=== PATIENT | male | born 1950 | race Caucasian/White ===

== ENCOUNTER 2020-07-30 03:26 | Emergency (ER) | payer MEDICARE, OTHER ==
[2020-07-30 03:45] VITALS: RESP 16; TEMP 97.6
[2020-07-30 04:33] LABS: Basophils % (A) 0 %; Eosinophils # (A) 0.2 k/uL (0-0.7); Eosinophils % (A) 1 %; HCT 49.1 % (39.0-53.0); Lymphocytes # (A) 0.9 k/uL (1.0-4.8); Lymphocytes % (A) 6 %; MCH 30.3 pg (25.0-35.0); MCHC 34.7 g/dL (31.0-37.0); MCV 87.4 fL (80.0-100.0); Mean Platelet Volume 8.6; Monocytes % (A) 6 %; Neutrophils # (A) 14.1 k/uL (1.3-7.7); Neutrophils % (A) 86 %; Platelet Count 146 k/uL (150-450); RBC 5.61 m/uL (4.30-5.90); WBC 16.3 k/uL (3.8-10.6)
--- NOTE | 2020-07-30 04:40 | XR ---
EXAMINATION TYPE: XR KUB DATE OF EXAM: 07/30/2020 COMPARISON: NONE HISTORY: Abdominal pain TECHNIQUE: 2 views FINDINGS: 2 views upright show no sign of intestinal obstruction or pneumoperitoneum. Fecal pattern i s normal. Lung bases are clear. There are no pathologic calcifications. IMPRESSION: Nonacute abdomen.
[2020-07-30 04:54] LABS: Albumin 3.8 g/dL (3.5-5.0); Potassium 4.3 mmol/L (3.5-5.1); Total Bilirubin 0.4 mg/dL (0.2-1.3)
--- NOTE | 2020-07-30 06:02 | ED ---
Abdominal Pain HPI - General Chief Complaint: Abdominal Pain Stated Complaint: Poss Allergic Reaction Time Seen by Provider: 07/30/20 03:51 Source: patient, EMS Mode of arrival: EMS Limitations: no limitations - History of Present Illness Initial Comments: This patient is a 70-year-old man who presents after having had some abdominal cramping, nausea, vomiting and then diarrhea. Patient had eaten prior to this coming on and thought that there may have been something he was ALLERGIC to. MD Complaint: abdominal pain Onset/Timin -: hour(s) Location: diffuse Radiation: none Migration to: no migration Quality: cramping Consistency: now resolved Improves With: nothing Worsens With: nothing Associated Symptoms: nausea, vomiting, diarrhea - Related Data Home Medications Medication Instructions Recorded Confirmed Aspirin 325 mg PO HS 07/01/14 01/07/15 Losartan [Cozaar] 50 mg PO HS 07/01/14 01/07/15 Metoprolol Tartrate [Lopressor] 25 mg PO HS 07/01/14 01/07/15 Simvastatin [Zocor] 40 mg PO HS 07/01/14 01/07/15 Previous Rx's Medication Instructions Recorded Famotidine [Pepcid] 20 mg PO DAILY #14 tablet 01/07/15 predniSONE 60 mg PO DIRECTED #30 tab 01/07/15 Allergies Allergy/AdvReac Type Severity Reaction Status Date / Time fosinopril sodium Allergy Swelling Verified 01/07/15 04:44 [From Monopril] blood pressure medication Allergy Itching Uncoded 01/07/15 04:44 Review of Systems ROS Statement: Those systems with pertinent positive or pertinent negative responses have been documented in the HPI. ROS Other: All systems not noted in ROS Statement are negative. Constitutional: Denies: fever, chills ENT: Denies: throat pain Respiratory: Denies: cough, dyspnea Cardiovascular: Denies: chest pain, palpitations, edema Gastrointestinal: Reports: abdominal pain, nausea, vomiting, diarrhea. Denies: hematemesis, melena, hematochezia Genitourinary: Denies: dysuria, hematuria Musculoskeletal: Denies: back pain Skin: Denies: rash Neurological: Denies: headache, weakness, numbness Past Medical History Past Medical History: Chest Pain / Angina Additional Past Medical History / Comment(s): MD History of Any Multi-Drug Resistant Organisms: None Reported Past Surgical History: Tonsillectomy Additional Past Surgical History / Comment(s): bovine valve, aortic valve replacement, left shoulder Past Psychological History: No Psychological Hx Reported Past Alcohol Use History: None Reported Past Drug Use History: None Reported General Exam Limitations: no limitations General appearance: alert, in no apparent distress Head exam: Present: atraumatic, normocephalic Eye exam: Present: normal appearance. Absent: scleral icterus, conjunctival injection ENT exam: Present: normal oropharynx Neck exam: Present: normal inspection Respiratory exam: Present: normal lung sounds bilaterally. Absent: respiratory distress, wheezes, rales, rhonchi, stridor Cardiovascular Exam: Present: regular rate, normal rhythm, normal heart sounds. Absent: systolic murmur, diastolic murmur, rubs, gallop GI/Abdominal exam: Present: soft. Absent: distended, tenderness, guarding, rebound, rigid, mass Extremities exam: Present: normal inspection, normal capillary refill. Absent: pedal edema, calf tenderness Back exam: Present: normal inspection. Absent: CVA tenderness (R), CVA tenderness (L) Neurological exam: Present: alert Skin exam: Present: warm, dry, intact, normal color. Absent: rash Course Vital Signs 07/30/20 07/30/20 03:44 06:07 Temperature 97.6 F Pulse Rate 64 65 Respiratory 16 16 Rate Blood Pressure 109/79 187/77 O2 Sat by Pulse 96 Oximetry Medical Decision Making - Medical Decision Making Patient is 70-year-old man presenting with GI symptoms that have subsequently resolved. He is feeling better and would like to go home. Discussed appropriate further care and follow-up as well as the return parameters - Lab Data Result diagrams: 07/30/20 04:19 07/30/20 04:19 Lab Results 07/30/20 07/30/20 07/30/20 Range/Units 04:19 04:19 04:19 WBC 16.3 H (3.8-10.6) k/uL RBC 5.61 (4.30-5.90) m/uL Hgb 17.0 (13.0-17.5) gm/dL Hct 49.1 (39.0-53.0) % MCV 87.4 (80.0-100.0) fL MCH 30.3 (25.0-35.0) pg MCHC 34.7 (31.0-37.0) g/dL RDW 13.0 (11.5-15.5) % Plt Count 146 L (150-450) k/uL MPV 8.6 Neutrophils % 86 % Lymphocytes % 6 % Monocytes % 6 % Eosinophils % 1 % Basophils % 0 % Neutrophils # 14.1 H (1.3-7.7) k/uL Lymphocytes # 0.9 L (1.0-4.8) k/uL Monocytes # 1.0 (0-1.0) k/uL Eosinophils # 0.2 (0-0.7) k/uL Basophils # 0.0 (0-0.2) k/uL Sodium 140 (137-145) mmol/L Potassium 4.3 (3.5-5.1) mmol/L Chloride 106 (98-107) mmol/L Carbon Dioxide 28 (22-30) mmol/L Anion Gap 6 mmol/L BUN 23 H (9-20) mg/dL Creatinine 1.09 (0.66-1.25) mg/dL Est GFR (CKD-EPI)AfAm 80 (>60 ml/min/1.73 sqM) Est GFR (CKD-EPI)NonAf 69 (>60 ml/min/1.73 sqM) Glucose 135 H (74-99) mg/dL Plasma Lactic Acid Reese 1.1 (0.7-2.0) mmol/L Calcium 9.0 (8.4-10.2) mg/dL Total Bilirubin 0.4 (0.2-1.3) mg/dL AST 23 (17-59) U/L ALT 17 (4-49) U/L Alkaline Phosphatase 58 (38-126) U/L Troponin I (0.000-0.034) ng/mL Total Protein 6.0 L (6.3-8.2) g/dL Albumin 3.8 (3.5-5.0) g/dL Amylase 43 (30-110) U/L Lipase 152 (23-300) U/L /20/ Range/Units 04:19 WBC (3.8-10.6) k/uL RBC (4.30-5.90) m/uL Hgb (13.0-17.5) gm/dL Hct (39.0-53.0) % MCV (80.0-100.0) fL MCH (25.0-35.0) pg MCHC (31.0-37.0) g/dL RDW (11.5-15.5) % Plt Count (150-450) k/uL MPV Neutrophils % % Lymphocytes % % Monocytes % % Eosinophils % % Basophils % % Neutrophils # (1.3-7.7) k/uL Lymphocytes # (1.0-4.8) k/uL Monocytes # (0-1.0) k/uL Eosinophils # (0-0.7) k/uL Basophils # (0-0.2) k/uL Sodium (137-145) mmol/L Potassium (3.5-5.1) mmol/L Chloride (98-107) mmol/L Carbon Dioxide (22-30) mmol/L Anion Gap mmol/L BUN (9-20) mg/dL Creatinine (0.66-1.25) mg/dL Est GFR (CKD-EPI)AfAm (>60 ml/min/1.73 sqM) Est GFR (CKD-EPI)NonAf (>60 ml/min/1.73 sqM) Glucose (74-99) mg/dL Plasma Lactic Acid Reese (0.7-2.0) mmol/L Calcium (8.4-10.2) mg/dL Total Bilirubin (0.2-1.3) mg/dL AST (17-59) U/L ALT (4-49) U/L Alkaline Phosphatase (38-126) U/L Troponin I 0.012 (0.000-0.034) ng/mL Total Protein (6.3-8.2) g/dL Albumin (3.5-5.0) g/dL Amylase (30-110) U/L Lipase (23-300) U/L Disposition Clinical Impression: Abdominal pain Disposition: HOME SELF-CARE Condition: Good Instructions (If sedation given, give patient instructions): Abdominal Pain (ED) Is patient prescribed a controlled substance at d/c from ED?: No Referrals: Reshma Ballard DO [Primary Care Provider] - 1-2 days
[2020-07-30 06:09] VITALS: BP 187/77; PULSE 65
== END 2020-07-30 06:18 | disposition home or self-care (01) ==
LOC: EC 03:26
DX: R10.84 Generalized abdominal pain (principal); R11.2 Nausea with vomiting, unspecified; R19.7 Diarrhea, unspecified; Z88.8 Allergy status to other drugs, medicaments and biological substances
CPT/HCPCS: 74018; 80053; 82150; 83605; 83690; 84484; 85025; 99284

== ENCOUNTER → 2021-08-09 | Outpatient (CLI) | payer MEDICARE, OTHER ==
--- NOTE | 2021-08-09 11:18 | US ---
EXAMINATION TYPE: US venous doppler duplex LE DATE OF EXAM: 08/09/2021 11:11 AM COMPARISON: NONE CLINICAL HISTORY: M79.662 Pain Left lower leg. Left leg pain and swelling SIDE PERFORMED: Bilateral TECHNIQUE: The lower extremity deep venous system is examined utilizing real time linear array sonog crystal with graded compression, doppler sonography and color-flow sonography. VESSELS IMAGED: Common Femoral Vein Deep Femoral Vein Greater Saphenous Vein * Femoral Vein Popliteal Vein Small Saphenous Vein * Proximal Calf Veins (* superficial vessels) Right Leg: Appears negative for DVT Left Leg: Appears negative for DVT IMPRESSION: No evidence for DVT at this time.
== END | disposition home or self-care (01) ==
LOC: RADUSWWP 10:44
PROVIDERS: ATTEND Family Medicine
DX: M79.662 Pain in left lower leg (principal)
CPT/HCPCS: 93970

== ENCOUNTER 2021-08-10 14:51 | Inpatient (IN) | payer MEDICARE ==
[2021-08-10] MEDS ORDERED: VANCOMYCIN 1,500 MG in SODIUM CHLORIDE 0.9% 250 ML IVPB STA (19:03)
[2021-08-10] MEDS ORDERED: SODIUM CHLORIDE 0.9% 1,000 ML IV STA (20:20)
--- NOTE | 2021-08-10 20:39 | ED ---
Extremity Problem HPI - General Chief complaint: Extremity Problem,Nontraumatic Stated complaint: Leg pain-Sent by PCP Time Seen by Provider: 08/10/21 18:49 Source: patient Mode of arrival: wheelchair Limitations: no limitations - History of Present Illness Initial comments: Patient is a 71-year-old male who presents to the emergency department for evalu ation of worsening cellulitis. Patient states that he was evaluated at [facility] on August 08 for redness and swelling of his lower left leg. Patient states on August 03 he was bit by a tick on his left side over his rib cage. His states that the tick was on his body for approximately less than 30 minutes before being pulled off. Patient states he did not experience a rash or any other symptoms until the redness on his left leg 5 days later. Patient was put on doxycycline and has been taking the medication as directed for the past 2 days. Patient states that redness and swelling is worsening. Patient endorses chills. He has not taken his temperature at home. Denies chest pain, shortness of breath, joint pain, rash over other area of the body, and other concerns. His primary care provider sent him to the hospital today for a venous Doppler of the left lower extremity which was reviewed and negative for DVT. - Related Data Home Medications Medication Instructions Recorded Confirmed Aspirin 325 mg PO HS 07/01/14 01/07/15 Losartan [Cozaar] 50 mg PO HS 07/01/14 01/07/15 Metoprolol Tartrate [Lopressor] 25 mg PO HS 07/01/14 01/07/15 Simvastatin [Zocor] 40 mg PO HS 07/01/14 01/07/15 Previous Rx's Medication Instructions Recorded Famotidine [Pepcid] 20 mg PO DAILY #14 tablet 01/07/15 predniSONE 60 mg PO DIRECTED #30 tab 01/07/15 Allergies Allergy/AdvReac Type Severity Reaction Status Date / Time fosinopril sodium Allergy Swelling Verified 08/10/21 16:13 [From Monopril] blood pressure medication Allergy Itching Uncoded 08/10/21 16:13 Review of Systems ROS Statement: Those systems with pertinent positive or pertinent negative responses have been documented in the HPI. ROS Other: All systems not noted in ROS Statement are negative. Past Medical History Past Medical History: Chest Pain / Angina Additional Past Medical History / Comment(s): cellulitis; [place] History of Any Multi-Drug Resistant Organisms: None Reported Past Surgical History: Tonsillectomy Additional Past Surgical History / Comment(s): bovine valve, aortic valve replacement, left shoulder Past Psychological History: No Psychological Hx Reported Smoking Status: Current every day smoker Past Alcohol Use History: None Reported Past Drug Use History: None Reported General Exam Limitations: no limitations General appearance: alert, in no apparent distress Head exam: Present: atraumatic, normocephalic, normal inspection Eye exam: Present: normal appearance, PERRL, EOMI. Absent: scleral icterus, conjunctival injection, periorbital swelling Respiratory exam: Present: normal lung sounds bilaterally, other (no rash or other skin abnormality over left ribs). Absent: respiratory distress, wheezes, rales, rhonchi, stridor Cardiovascular Exam: Present: regular rate, normal rhythm, normal heart sounds. Absent: systolic murmur, diastolic murmur, rubs, gallop, clicks GI/Abdominal exam: Present: soft, normal bowel sounds. Absent: distended, tenderness, guarding, rebound, rigid Extremities exam: Present: other (Significant erythema, swelling, warmth, and pain over the left lower leg and into the foot. There is some erythema traveling up the entire posterior thigh) Neurological exam: Present: alert, oriented X3, CN II-XII intact Psychiatric exam: Present: normal affect, normal mood Skin exam: Present: warm, dry, intact Course Vital Signs 08/10/21 16:11 Temperature 97.7 F Pulse Rate 69 Respiratory 16 Rate Blood Pressure 127/80 O2 Sat by Pulse 97 Oximetry Medical Decision Making - Medical Decision Making This is a 71-year-old male who presents with worsening left lower extremity cellulitis. Thorough history and examination were performed. Patient is afebrile however reports chills. There is significant erythema, swelling, and warmth over the left lower leg and into the foot. There is also erythema traveling up the entire length of the posterior thigh. Neurovascularly intact. Patient has extensive cellulitis and will need IV antibiotics. Blood cultures pending. Vancomycin initiated. Laboratory studies significant for mildly elevated white count at 11.8. Case discussed with Dr. Che. Patient will be admitted to her service for further evaluation and management. ID consulted cellulitis with recent tick bite. Results discussed with patient who verbalizes understanding and is agreeable to admission. Dr. Santoyo is my attending. - Lab Data Result diagrams: 08/10/21 20:25 08/10/21 20:25 Lab Results 08/10/21 08/10/21 08/10/21 Range/Units 20:25 20:25 20:25 WBC 11.8 H (3.8-10.6) k/uL RBC 4.74 (4.30-5.90) m/uL Hgb 14.2 (13.0-17.5) gm/dL Hct 41.9 (39.0-53.0) % MCV 88.4 (80.0-100.0) fL MCH 29.9 (25.0-35.0) pg MCHC 33.9 (31.0-37.0) g/dL RDW 13.1 (11.5-15.5) % Plt Count 131 L (150-450) k/uL MPV 8.8 Neutrophils % 88 % Lymphocytes % 5 % Monocytes % 4 % Eosinophils % 1 % Basophils % 1 % Neutrophils # 10.4 H (1.3-7.7) k/uL Lymphocytes # 0.6 L (1.0-4.8) k/uL Monocytes # 0.5 (0-1.0) k/uL Eosinophils # 0.1 (0-0.7) k/uL Basophils # 0.1 (0-0.2) k/uL Sodium 133 L (137-145) mmol/L Potassium 4.1 (3.5-5.1) mmol/L Chloride 99 (98-107) mmol/L Carbon Dioxide 27 (22-30) mmol/L Anion Gap 7 mmol/L BUN 19 (9-20) mg/dL Creatinine 1.03 (0.66-1.25) mg/dL Est GFR (CKD-EPI)AfAm 86 (>60 ml/min/1.73 sqM) Est GFR (CKD-EPI)NonAf 74 (>60 ml/min/1.73 sqM) Glucose 226 H (74-99) mg/dL Plasma Lactic Acid Reese 1.3 (0.7-2.0) mmol/L Calcium 8.4 (8.4-10.2) mg/dL Total Bilirubin 0.8 (0.2-1.3) mg/dL AST 29 (17-59) U/L ALT 16 (4-49) U/L Alkaline Phosphatase 59 (38-126) U/L Total Protein 6.3 (6.3-8.2) g/dL Albumin 3.5 (3.5-5.0) g/dL Disposition Clinical Impression: Cellulitis of left lower extremity, Chills, Tick bite of rib Disposition: ADMITTED IP TO THIS [facility] Condition: Fair Referrals: Reshma Ballard DO [Primary Care Provider] - 1-2 days Decision Time: 21:58
[2021-08-10 21:34] LABS: Basophils # (A) 0.1 k/uL (0-0.2); Basophils % (A) 1 %; Eosinophils # (A) 0.1 k/uL (0-0.7); Eosinophils % (A) 1 %; HCT 41.9 % (39.0-53.0); HGB 14.2 gm/dL (13.0-17.5); Lymphocytes # (A) 0.6 k/uL (1.0-4.8); Lymphocytes % (A) 5 %; MCH 29.9 pg (25.0-35.0); MCHC 33.9 g/dL (31.0-37.0); MCV 88.4 fL (80.0-100.0); Mean Platelet Volume 8.8; Monocytes # (A) 0.5 k/uL (0-1.0); Monocytes % (A) 4 %; Neutrophils # (A) 10.4 k/uL (1.3-7.7); Neutrophils % (A) 88 %; Platelet Count 131 k/uL (150-450); RBC 4.74 m/uL (4.30-5.90); RDW 13.1 % (11.5-15.5); WBC 11.8 k/uL (3.8-10.6)
[2021-08-10 21:36] LABS: Albumin 3.5 g/dL (3.5-5.0); Calcium 8.4 mg/dL (8.4-10.2); Total Bilirubin 0.8 mg/dL (0.2-1.3); Total Protein 6.3 g/dL (6.3-8.2)
[2021-08-10 21:45] LABS: Potassium 4.1 mmol/L (3.5-5.1)
[2021-08-10] MEDS ORDERED: NALOXONE 0.4 MG/ML 1 ML VIAL IV PRN (22:31)
[2021-08-10] MEDS ORDERED: MORPHINE SULFATE 4 MG/ML SYRINGE IVP STA (23:31)
[2021-08-11] MEDS: MORPHINE SULFATE 4 MG/ML SYRINGE IVP PRN ×3 (06:47→20:17)
[2021-08-11 06:52] LABS: Glucose,Whole Blood 124 mg/dL (70-110)
[2021-08-11] MEDS: NICOTINE 14MG/24HR PATCH TRANSDERM SCH (07:15)
--- NOTE | 2021-08-11 10:38 | P.HPIM ---
History of Present Illness This is a pleasant 71 years old male with past medical history of hypertension , hyperlipidemia. Is a patient of Dr. Bocanegra pt states he was playing like a baseball game last friday and next day the back of his left leg calf started hurting him, and started getting more red swollen and tender, he presents with left leg cellulitis mainly involving the distal left leg looks extends to lesser extent in the left foot and more on the medial thigh up to the groin. The leg is warm, erythematous and tender and swollen Patient denies any other complaints. Patient states he is diabetic but he is on diet control only. Denies chest pain or dyspnea. No abdominal pain vomiting or diarrhea. No urinary complaints. No headache or weakness. he smokes less than half the day and he was counseled that he does not want to quit and he declined nicotine patch, no alcohol or illicit drugs. Vitas looks stable. Mild leukocytosis at 11.8. Mild thrombocytopenia on 131. BNP and d, And painfulided enzymes are unremarkable. Glucose is 226. In the emergency room patient was started on IV vancomycin. ID consult Review of Systems Review of systems CONSTITUTIONAL: No fever, no malaise, no fatigue. HEENT: No recent visual problems or hearing problems. Denied any sore throat. CARDIOVASCULAR: No orthopnea, PND, no palpitations, no syncope. PULMONARY: No shortness of breath, no cough, no hemoptysis. GASTROINTESTINAL: No diarrhea, no nausea, no vomiting, no abdominal pain. Normoactive bowel sounds. NEUROLOGICAL: No headaches, no weakness, no numbness. HEMATOLOGICAL: Denies any bleeding or petechiae. GENITOURINARY: Denies any burning micturition, frequency, or urgency. MUSCULOSKELETAL/RHEUMATOLOGICAL: Denies any joint pain, swelling, or any muscle pain. Except above ENDOCRINE: Denies any polyuria or polydipsia. Past Medical History Past Medical History: Chest Pain / Angina Additional Past Medical History / Comment(s): cellulitis; [place] History of Any Multi-Drug Resistant Organisms: None Reported Past Surgical History: Tonsillectomy Additional Past Surgical History / Comment(s): bovine valve, aortic valve r eplacement, left shoulder Past Anesthesia/Blood Transfusion Reactions: No Reported Reaction Past Psychological History: No Psychological Hx Reported Smoking Status: Current every day smoker Past Alcohol Use History: None Reported Past Drug Use History: None Reported Medications and Allergies Home Medications Medication Instructions Recorded Confirmed Type Metoprolol Tartrate [Lopressor] 25 mg PO BID 07/01/14 08/10/21 History Simvastatin [Zocor] 40 mg PO HS 07/01/14 08/10/21 History Aspirin EC [Ecotrin Low Dose] 81 mg PO DAILY 08/10/21 08/10/21 History Doxycycline Hyclate 100 mg PO BID 08/10/21 08/10/21 History Allergies Allergy/AdvReac Type Severity Reaction Status Date / Time fosinopril sodium Allergy Swelling & Verified 08/10/21 22:47 [From Monopril] itching lisinopril Allergy Itching Verified 08/10/21 22:47 Physical Exam Vitals: Vital Signs Temp Pulse Pulse Resp BP BP Pulse Ox 08/11/21 01:30 99.5 F 79 16 138/77 95 08/10/21 23:00 77 16 130/77 96 08/10/21 22:42 99.5 F 79 16 138/77 95 08/10/21 16:11 97.7 F 69 16 127/80 97 Intake and Output 08/10/21 08/11/21 08/11/21 22:59 06:59 14:59 Other: Weight 78.018 kg GENERAL: The patient is alert and oriented x3, not in any acute distress. Well developed, well nourished. HEENT: Pupils are round and equally reacting to light. EOMI. No scleral icterus. No conjunctival pallor. Normocephalic, atraumatic. No pharyngeal erythema. No thyromegaly. CARDIOVASCULAR: S1 and S2 present. No murmurs, rubs, or gallops. PULMONARY: Chest is clear to auscultation, no wheezing or crackles. ABDOMEN: Soft, nontender, nondistended, normoactive bowel sounds. No palpable organomegaly. MUSCULOSKELETAL: No joint swelling or deformity. -EXTREMITIES: No cyanosis, clubbing, or pedal edema. The whole left leg is inflamed, red swollen and tender, mainly in the distal part. Involving the medial part of the left thigh and to less extent the left foot, no ankle o knee swelling or limitation of movemen significantt NEUROLOGICAL: Gross neurological examination did not reveal any focal deficits. SKIN: No rashes. no petechiae. Results CBC & Chem 7: 08/10/21 20:25 08/10/21 20:25 Labs: Abnormal Lab Results - Last 24 Hours (Table) 08/10/21 08/10/21 08/11/21 Range/Units 20:25 20:25 06:51 WBC 11.8 H (3.8-10.6) k/uL Plt Count 131 L (150-450) k/uL Neutrophils # 10.4 H (1.3-7.7) k/uL Lymphocytes # 0.6 L (1.0-4.8) k/uL Sodium 133 L (137-145) mmol/L Glucose 226 H (74-99) mg/dL POC Glucose (mg/dL) 124 H (70-110) mg/dL Thrombosis Risk Factor Assmnt - Choose All That Apply Any of the Below Risk Factors Present?: No Other Risk Factors: No Thrombosis Risk Factor Assessment Level: Very Low Risk Assessment and Plan Assessment: Left lower extremity cellulitis Nicotine dependence Hypertension Hyperlipidemia Plan: This is a pleasant 71 years old female who presents with acute cellulitis Continue with antibiotics Infectious disease team consult Road consult also orthopedic team given his significant swelling of the left lower extremity Labs and medication were reviewed.. Continue same treatment. Continue with symptomatic treatment. Resume home medication. Monitor lytes and vitals. DVT and GI prophylaxis. Further recommendations as per clinical course of the patient DVT prophylaxis: Subcutaneous heparin GI Prophylaxis: Pepcid PT/OT: Pending Prognosis is guarded
[2021-08-11] MEDS: SODIUM CHLORIDE 0.9% 1,000 ML IV SCH (11:28)
[2021-08-11 11:33] LABS: Basophils # (A) 0.02 X 10*3/uL (0.00-0.10); Basophils % (A) 0.2 %; Eosinophils # (A) 0.11 X 10*3/uL (0.04-0.35); Eosinophils % (A) 1.1 %; HCT 38.5 % (39.6-50.0); HGB 12.5 g/dL (13.0-17.0); Immature Grans, Automated 0.4 %; Lymphocytes # (A) 0.74 X 10*3/uL (0.90-5.00); Lymphocytes % (A) 7.3 %; MCH 28.2 pg (27.0-32.0); MCHC 32.5 g/dL (32.0-37.0); MCV 86.9 fL (80.0-97.0); Mean Platelet Volume 11.7 fL (9.5-12.2); Monocytes # (A) 0.87 X 10*3/uL (0.20-1.00); Monocytes % (A) 8.6 %; NRBC Per 100 WBC 0 /100 WBCS (0.0-0.0); Neutrophils # (A) 8.32 X 10*3/uL (1.80-7.70); Neutrophils % (A) 82.4 %; Platelet Count 135 X 10*3/uL (140-440); RBC 4.43 X 10*6/uL (4.40-5.60); RDW 13.1 % (11.5-14.5)
[2021-08-11 11:33] LABS: Glucose,Whole Blood 212 mg/dL (70-110)
[2021-08-11 11:41] LABS: African American GFR (CKD) 88.6 (60.0-200.0); Anion Gap 9.5 mmol/L (10.00-18.00); BUN/Creat Ratio 13.8 Ratio (12.00-20.00); Blood Urea Nitrogen 13.8 mg/dL (9.0-27.0); Calcium 7.8 mg/dL (8.7-10.3); Carbon Dioxide 20.5 mmol/L (20.0-27.5); Magnesium 1.9 mg/dL (1.5-2.4); Non-African American GFR(CKD) 76.5 (60.0-200.0)
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
--- NOTE | 2021-08-11 11:52 | US ---
EXAMINATION TYPE: US venous doppler duplex LE LT DATE OF EXAM: 08/11/2021 11:02 AM COMPARISON: US CLINICAL HISTORY: swelling. Left leg redness and swelling SIDE PERFORMED: Left TECHNIQUE: The lower extremity deep venous system is examined utilizing real time linear array sonog crystal with graded compression, doppler sonography and color-flow sonography. VESSELS IMAGED: Common Femoral Vein Deep Femoral Vein Greater Saphenous Vein * Femoral Vein Popliteal Vein Small Saphenous Vein * Proximal Calf Veins (* superficial vessels) Left Leg: Negative for DVT, Grayscale, color doppler, spectral doppler imaging performed of the deep veins of the lower extremities. There is normal flow, compressibility, vascular waveforms. IMPRESSION: No evidence for deep vein thrombosis of the left lower extremity.
[2021-08-11] MEDS: INSULIN ASPART (NovoLOG) 100 UNIT/ML VIAL SQ SCH ×3 (11:55→20:12)
[2021-08-11] MEDS ORDERED: VANCOMYCIN 1,500 MG in SODIUM CHLORIDE 0.9% 250 ML IVPB SCH (14:00)
[2021-08-11] MEDS: HYDROcodone/APAP 7.5-325MG 1 EACH TAB PO PRN ×2 (14:16→21:55)
[2021-08-11 16:53] LABS: Glucose,Whole Blood 113 mg/dL (70-110)
[2021-08-11] MEDS: ASPIRIN 81 MG PO SCH (19:18)
[2021-08-11] MEDS: FAMOTIDINE 20 MG/2 ML VIAL IV SCH (20:04)
[2021-08-11] MEDS: HEPARIN SODIUM,PORCINE/PF 5,000 UNIT/0.5 ML SYRINGE SQ SCH (20:05)
[2021-08-11 20:12] LABS: Glucose,Whole Blood 133 mg/dL (70-110)
[2021-08-11] MEDS: ATORVASTATIN 20 MG TAB PO SCH (20:12)
[2021-08-11] MEDS: METOPROLOL TARTRATE 25 MG TAB PO SCH (20:17)
[2021-08-12] MEDS: MORPHINE SULFATE 4 MG/ML SYRINGE IVP PRN ×4 (00:24→19:14)
[2021-08-12] MEDS: SODIUM CHLORIDE 0.9% 1,000 ML IV SCH ×2 (00:25→18:37)
--- NOTE | 2021-08-12 00:58 | P.CONS ---
History of Present Illness - Reason for Consult Consult date: 08/11/21 Left lower extremity cellulitis Requesting physician: Kriss Rivera - Chief Complaint Left leg swelling and redness x few days - History of Present Illness Patient is a 71-year-old male apparently has been bitten by a tick last week on his left side of his chest, the tick was removed within a few hours of attachment and the patient had a rash or redness apparently afterwards the patient did scrape his left coleman on a trailer hitch and subsequently for the las t few days noticed to have increasing pain swelling redness of the left leg which has progressively gotten worse for the patient presented to the hospital patient on arrival to the ER was running a low-grade fever of 99.5 F patient did have white count of 11.8 with a left shift kidney function has been normal blood cultures obtained currently pending patient complaining of some chills but no high-grade fever has been complaining of increasing pain swelling redness of the left leg pain is mostly sharp to throbbing intensity is almost 10 out of 10 with no radiation with associated swelling redness no open wound or any drainage patient was started on vancomycin infectious disease was consulted for further management of antibiotic therapy Review of Systems Positive point has been mentioned in the HPI rest of the systems are negative Past Medical History Past Medical History: Chest Pain / Angina Additional Past Medical History / Comment(s): cellulitis; [place] History of Any Multi-Drug Resistant Organisms: None Reported Past Surgical History: Tonsillectomy Additional Past Surgical History / Comment(s): bovine valve, aortic valve replacement, left shoulder Past Anesthesia/Blood Transfusion Reactions: No Reported Reaction Past Psychological History: No Psychological Hx Reported Smoking Status: Current every day smoker Past Alcohol Use History: None Reported Past Drug Use History: None Reported Medications and Allergies Home Medications Medication Instructions Recorded Confirmed Type Metoprolol Tartrate [Lopressor] 25 mg PO BID 07/01/14 08/10/21 History Simvastatin [Zocor] 40 mg PO HS 07/01/14 08/10/21 History Aspirin EC [Ecotrin Low Dose] 81 mg PO DAILY 08/10/21 08/10/21 History Cephalexin [Keflex] 500 mg PO Q8HR 7 Days #21 cap 08/18/21 Rx Clindamycin [Cleocin] 150 mg PO Q6H 7 Days #28 cap 08/18/21 Rx Ketorolac [Toradol] 10 mg PO Q6HR 3 Days #12 tab 08/18/21 Rx Allergies Allergy/AdvReac Type Severity Reaction Status Date / Time fosinopril sodium Allergy Swelling & Verified 08/10/21 22:47 [From Monopril] itching lisinopril Allergy Itching Verified 08/10/21 22:47 Physical Exam Vitals: Vital Signs Temp Pulse Pulse Resp BP BP Pulse Ox 08/11/21 14:00 97.3 F L 67 18 108/67 94 L 08/11/21 08:00 98.2 F 75 16 115/71 93 L 08/11/21 01:30 99.5 F 79 16 138/77 95 08/10/21 23:00 77 16 130/77 96 08/10/21 22:42 99.5 F 79 16 138/77 95 08/10/21 16:11 97.7 F 69 16 127/80 97 GENERAL DESCRIPTION: Elderly male lying in bed, no distress. No tachypnea or accessory muscle of respiration use. HEENT: Shows Pallor , no scleral icterus. Oral mucous membrane is dry. No pharyngeal erythema or thrush NECK: Trachea central, no thyromegaly. LUNGS: Unlabored breathing. Clear to auscultation anteriorly. No wheeze or crackle. HEART: S1, S2, regular rate and rhythm. No loud murmur ABDOMEN: Soft, no tenderness , guarding or rigidity, no organomegaly EXTREMITIES: Left leg with diffuse swelling and redness warm and tender to touch SKIN: No rash, no masses palpable. NEUROLOGICAL: The patient is awake, alert, oriented x3, mood and affect normal. Results CBC & Chem 7: 08/17/21 06:23 08/17/21 06:23 Labs: Abnormal Lab Results - Last 24 Hours (Table) 08/10/21 08/10/21 08/11/21 Range/Units 20:25 20:25 06:51 WBC 11.8 H (3.8-10.6) k/uL Hgb (13.0-17.0) g/dL Hct (39.6-50.0) % Plt Count 131 L (150-450) k/uL Neutrophils # 10.4 H (1.3-7.7) k/uL Lymphocytes # 0.6 L (1.0-4.8) k/uL Sodium 133 L (137-145) mmol/L Anion Gap (10.00-18.00) mmol/L Glucose 226 H (74-99) mg/dL POC Glucose (mg/dL) 124 H (70-110) mg/dL Hemoglobin A1c (0.0-6.0) % Calcium (8.7-10.3) mg/dL 08/11/21 08/11/21 08/11/21 Range/Units 07:46 07:46 07:46 WBC 10.10 H (3.8-10.6) k/uL Hgb 12.5 L (13.0-17.0) g/dL Hct 38.5 L (39.6-50.0) % Plt Count 135 L (150-450) k/uL Neutrophils # 8.32 H (1.3-7.7) k/uL Lymphocytes # 0.74 L (1.0-4.8) k/uL Sodium 134 L (137-145) mmol/L Anion Gap 9.50 L (10.00-18.00) mmol/L Glucose 134 H (74-99) mg/dL POC Glucose (mg/dL) (70-110) mg/dL Hemoglobin A1c 6.5 H (0.0-6.0) % Calcium 7.8 L (8.7-10.3) mg/dL 08/11/21 Range/Units 11:32 WBC (3.8-10.6) k/uL Hgb (13.0-17.0) g/dL Hct (39.6-50.0) % Plt Count (150-450) k/uL Neutrophils # (1.3-7.7) k/uL Lymphocytes # (1.0-4.8) k/uL Sodium (137-145) mmol/L Anion Gap (10.00-18.00) mmol/L Glucose (74-99) mg/dL POC Glucose (mg/dL) 212 H (70-110) mg/dL Hemoglobin A1c (0.0-6.0) % Calcium (8.7-10.3) mg/dL Assessment and Plan (1) Cellulitis of left lower extremity Status: Acute Code(s): L03.116 - CELLULITIS OF LEFT LOWER LIMB SNOMED Code(s): 213218100 Plan: 1patient presented to hospital acute left lower extremity cellulitis in this patient who did have diffuse swelling and redness more likely streptococcal disease clinically not behaving as MRSA or gram-negative infection. 2discontinue vancomycin. 3Marked area of the redness left leg. 4we will start the patient cefazolin 2 g every 8 hours. We will follow on clinical condition and cultures to further adjust medication if needed Thank you for this consultation will follow this patient along with you Time with Patient: Greater than 30
[2021-08-12] MEDS: HYDROcodone/APAP 7.5-325MG 1 EACH TAB PO PRN ×3 (04:05→23:06)
[2021-08-12 06:59] LABS: Glucose,Whole Blood 121 mg/dL (70-110)
[2021-08-12] MEDS: INSULIN ASPART (NovoLOG) 100 UNIT/ML VIAL SQ SCH ×4 (07:38→20:00)
[2021-08-12] MEDS: FAMOTIDINE 20 MG/2 ML VIAL IV SCH ×2 (08:01→19:57)
[2021-08-12] MEDS: HEPARIN SODIUM,PORCINE/PF 5,000 UNIT/0.5 ML SYRINGE SQ SCH ×2 (08:01→19:59)
[2021-08-12] MEDS: NICOTINE 14MG/24HR PATCH TRANSDERM SCH (08:01)
[2021-08-12] MEDS: METOPROLOL TARTRATE 25 MG TAB PO SCH ×2 (08:22→20:02)
--- NOTE | 2021-08-12 11:27 | P.PN ---
Subjective Progress Note Date: 08/12/21 Principal diagnosis: Cellulitis left lower extremity. Abrasion left lower leg. This is a 71-year-old male who we are following regarding cellulitis to his left lower extremity. He has had slight improvement in his swelling and redness. He has no new complaints or concerns today. Vital signs are stable. Objective - Vital Signs Vital signs: Vital Signs Temp 98.7 F 08/12/21 08:00 Pulse 52 L 08/12/21 08:00 Resp 18 08/12/21 08:00 BP 133/61 08/12/21 08:00 Pulse Ox 94 L 08/12/21 08:00 FiO2 Intake & Output 08/11/21 08/12/21 08/12/21 18:59 06:59 18:59 Output Total 400 Balance -400 Output: Urine 400 Other: Voiding Method Urinal # Voids 1 1 # Bowel Movements 1 - Exam This is a pleasant 71-year-old male in no acute distress. He is alert and oriented 3. Exam of the left leg reveals some remaining erythema at the distal aspect of the lower leg. He has full foot and ankle motion without difficulty or pain. Neurovascular status to the lower extremity is intact. - Labs CBC & Chem 7: 08/11/21 07:46 08/11/21 07:46 Labs: Abnormal Lab Results - Last 24 Hours (Table) 08/11/21 08/11/21 08/11/21 Range/Units 07:46 07:46 07:46 WBC 10.10 H (4.50-10.00) X 10*3/uL Hgb 12.5 L (13.0-17.0) g/dL Hct 38.5 L (39.6-50.0) % Plt Count 135 L (140-440) X 10*3/uL Neutrophils # 8.32 H (1.80-7.70) X 10*3/uL Lymphocytes # 0.74 L (0.90-5.00) X 10*3/uL Sodium 134 L (135-145) mmol/L Anion Gap 9.50 L (10.00-18.00) mmol/L Glucose 134 H (70-110) mg/dL POC Glucose (mg/dL) (70-110) mg/dL Hemoglobin A1c 6.5 H (0.0-6.0) % Calcium 7.8 L (8.7-10.3) mg/dL 08/11/21 08/11/21 08/11/21 Range/Units 11:32 16:51 20:11 WBC (4.50-10.00) X 10*3/uL Hgb (13.0-17.0) g/dL Hct (39.6-50.0) % Plt Count (140-440) X 10*3/uL Neutrophils # (1.80-7.70) X 10*3/uL Lymphocytes # (0.90-5.00) X 10*3/uL Sodium (135-145) mmol/L Anion Gap (10.00-18.00) mmol/L Glucose (70-110) mg/dL POC Glucose (mg/dL) 212 H 113 H 133 H (70-110) mg/dL Hemoglobin A1c (0.0-6.0) % Calcium (8.7-10.3) mg/dL 08/12/21 Range/Units 06:58 WBC (4.50-10.00) X 10*3/uL Hgb (13.0-17.0) g/dL Hct (39.6-50.0) % Plt Count (140-440) X 10*3/uL Neutrophils # (1.80-7.70) X 10*3/uL Lymphocytes # (0.90-5.00) X 10*3/uL Sodium (135-145) mmol/L Anion Gap (10.00-18.00) mmol/L Glucose (70-110) mg/dL POC Glucose (mg/dL) 121 H (70-110) mg/dL Hemoglobin A1c (0.0-6.0) % Calcium (8.7-10.3) mg/dL Microbiology - Last 24 Hours (Table) 08/10/21 22:00 Blood Culture - Preliminary Blood No Growth after 24 hours 08/10/21 20:25 Blood Culture - Preliminary Blood No Growth after 24 hours Assessment and Plan (1) Abrasion, lower leg, anterior Current Visit: Yes Status: Acute Code(s): S80.819A - ABRASION, UNSPECIFIED LOWER LEG, INITIAL ENCOUNTER SNOMED Code(s): 599774192 (2) Cellulitis of left lower extremity Current Visit: Yes Status: Acute Code(s): L03.116 - CELLULITIS OF LEFT LOWER LIMB SNOMED Code(s): 164450224 (3) Chills Current Visit: Yes Status: Acute Code(s): R68.83 - CHILLS (WITHOUT FEVER) SNOMED Code(s): 87072259 Plan: The clinical findings are discussed the patient. I feel that the superficial abrasion to the anterior aspect of his leg is more likely the culprit causing the cellulitis. I do not believe that the tick bite is related. I will add a K- pad for moist heat to the lower leg. I do not feel that there is any indication for surgical intervention at this time. We will continue to follow.
[2021-08-12 11:35] LABS: Glucose,Whole Blood 171 mg/dL (70-110)
[2021-08-12 11:58] LABS: HCT 36.2 % (39.6-50.0); HGB 11.9 g/dL (13.0-17.0); MCH 28.7 pg (27.0-32.0); MCHC 32.9 g/dL (32.0-37.0); MCV 87.4 fL (80.0-97.0); Mean Platelet Volume 11.9 fL (9.5-12.2); NRBC Per 100 WBC 0 /100 WBCS (0.0-0.0); Platelet Count 141 X 10*3/uL (140-440); RBC 4.14 X 10*6/uL (4.40-5.60); RDW 13.2 % (11.5-14.5); WBC 9.95 X 10*3/uL (4.50-10.00)
[2021-08-12 12:14] LABS: African American GFR (CKD) 102.7 (60.0-200.0); Anion Gap 10.4 mmol/L (10.00-18.00); BUN/Creat Ratio 16.71 Ratio (12.00-20.00); Blood Urea Nitrogen 14.3 mg/dL (9.0-27.0); Calcium 7.8 mg/dL (8.7-10.3); Carbon Dioxide 21.1 mmol/L (20.0-27.5); Magnesium 2.2 mg/dL (1.5-2.4); Non-African American GFR(CKD) 88.7 (60.0-200.0); Potassium 4.2 mmol/L (3.5-5.5)
[2021-08-12 12:37] LABS: Basophils # (A) 0.07 X 10*3/uL (0.00-0.10); Basophils % (A) 0.7 %; Eosinophils # (A) 0.17 X 10*3/uL (0.04-0.35); Eosinophils % (A) 1.7 %; Immature Grans, Automated 0.7 %; Lymphocytes # (A) 0.93 X 10*3/uL (0.90-5.00); Lymphocytes % (A) 9.3 %; Monocytes # (A) 1.01 X 10*3/uL (0.20-1.00); Monocytes % (A) 10.2 %; Neutrophils % (A) 77.4 %; RBC Morphology NORMAL
[2021-08-12 16:40] LABS: Glucose,Whole Blood 128 mg/dL (70-110)
[2021-08-12 19:52] LABS: Glucose,Whole Blood 173 mg/dL (70-110)
[2021-08-12] MEDS: ATORVASTATIN 20 MG TAB PO SCH (19:59)
[2021-08-12] MEDS: ASPIRIN 81 MG PO SCH (20:02)
--- NOTE | 2021-08-12 22:33 | P.PN ---
Subjective This is a pleasant 71 years old male with past medical history of hypertension , hyperlipidemia. Is a patient of Dr. Bocanegra pt states he was playing like a baseball game last friday and next day the back of his left leg calf started hurting him, and started getting more red swollen and tender, he presents with left leg cellulitis mainly involving the distal left leg looks extends to lesser extent in the left foot and more on the medial thigh up to the groin. The leg is warm, erythematous and tender and swollen Patient denies any other complaints. Patient states he is diabetic but he is on diet control only. Denies chest pain or dyspnea. No abdominal pain vomiting or diarrhea. No urinary complaints. No headache or weakness. he smokes less than half the day and he was counseled that he does not want to quit and he declined nicotine patch, no alcohol or illicit drugs. Vitas looks stable. Mild leukocytosis at 11.8. Mild thrombocytopenia on 131. BNP and d, And painfulided enzymes are unremarkable. Glucose is 226. In the emergency room patient was started on IV vancomycin. ID consult 08/12/2021 Left leg cellulitis today significantly improved, his redness and erythema in the left thigh is almost completely resolved and his cellulitis now is confined to the about two thirds of the left leg mainly distal part. Pain is better. With this improvement vancomycin was discontinued and continued with cefazolin He tolerated that well and hemodynamically stable No known 50 mL per hour Objective - Vital Signs Vital signs: Vital Signs Temp 98.7 F 08/12/21 08:00 Pulse 52 L 08/12/21 08:00 Resp 18 08/12/21 08:00 BP 133/61 08/12/21 08:00 Pulse Ox 94 L 08/12/21 08:00 FiO2 Intake & Output 08/11/21 08/12/21 08/12/21 18:59 06:59 18:59 Output Total 400 Balance -400 Output: Urine 400 Other: Voiding Method Urinal # Voids 1 1 # Bowel Movements 1 - Exam GENERAL: The patient is alert and oriented x3, not in any acute distress. Well d eveloped, well nourished. HEENT: Pupils are round and equally reacting to light. EOMI. No scleral icterus. No conjunctival pallor. Normocephalic, atraumatic. No pharyngeal erythema. No thyromegaly. CARDIOVASCULAR: S1 and S2 present. No murmurs, rubs, or gallops. PULMONARY: Chest is clear to auscultation, no wheezing or crackles. ABDOMEN: Soft, nontender, nondistended, normoactive bowel sounds. No palpable organomegaly. MUSCULOSKELETAL: No joint swelling or deformity. -EXTREMITIES: No cyanosis, clubbing, or pedal edema. Left leg cellulitis, improved NEUROLOGICAL: Gross neurological examination did not reveal any focal deficits. SKIN: No rashes. no petechiae. - Labs CBC & Chem 7: 08/12/21 06:38 08/12/21 06:38 Labs: Abnormal Lab Results - Last 24 Hours (Table) 08/11/21 08/11/21 08/11/21 Range/Units 07:46 07:46 07:46 WBC 10.10 H (4.50-10.00) X 10*3/uL Hgb 12.5 L (13.0-17.0) g/dL Hct 38.5 L (39.6-50.0) % Plt Count 135 L (140-440) X 10*3/uL Neutrophils # 8.32 H (1.80-7.70) X 10*3/uL Lymphocytes # 0.74 L (0.90-5.00) X 10*3/uL Sodium 134 L (135-145) mmol/L Anion Gap 9.50 L (10.00-18.00) mmol/L Glucose 134 H (70-110) mg/dL POC Glucose (mg/dL) (70-110) mg/dL Hemoglobin A1c 6.5 H (0.0-6.0) % Calcium 7.8 L (8.7-10.3) mg/dL 08/11/21 08/11/21 08/11/21 Range/Units 11:32 16:51 20:11 WBC (4.50-10.00) X 10*3/uL Hgb (13.0-17.0) g/dL Hct (39.6-50.0) % Plt Count (140-440) X 10*3/uL Neutrophils # (1.80-7.70) X 10*3/uL Lymphocytes # (0.90-5.00) X 10*3/uL Sodium (135-145) mmol/L Anion Gap (10.00-18.00) mmol/L Glucose (70-110) mg/dL POC Glucose (mg/dL) 212 H 113 H 133 H (70-110) mg/dL Hemoglobin A1c (0.0-6.0) % Calcium (8.7-10.3) mg/dL 08/12/21 Range/Units 06:58 WBC (4.50-10.00) X 10*3/uL Hgb (13.0-17.0) g/dL Hct (39.6-50.0) % Plt Count (140-440) X 10*3/uL Neutrophils # (1.80-7.70) X 10*3/uL Lymphocytes # (0.90-5.00) X 10*3/uL Sodium (135-145) mmol/L Anion Gap (10.00-18.00) mmol/L Glucose (70-110) mg/dL POC Glucose (mg/dL) 121 H (70-110) mg/dL Hemoglobin A1c (0.0-6.0) % Calcium (8.7-10.3) mg/dL Microbiology - Last 24 Hours (Table) 08/10/21 22:00 Blood Culture - Preliminary Blood No Growth after 24 hours 08/10/21 20:25 Blood Culture - Preliminary Blood No Growth after 24 hours Assessment and Plan Assessment: Left lower extremity cellulitis Nicotine dependence Hypertension Hyperlipidemia Plan: This is a pleasant 71 years old female who presents with acute cellulitis Continue with antibiotics, currently on cefazolin Infectious disease team consult Orthopedic consult Labs and medication were reviewed.. Continue same treatment. Continue with symptomatic treatment. Resume home medication. Monitor lytes and vitals. DVT and GI prophylaxis. Further recommendations as per clinical course of the patient DVT prophylaxis: Subcutaneous heparin GI Prophylaxis: Pepcid PT/OT: Pending Prognosis is guarded
--- NOTE | 2021-08-13 01:43 | P.PN ---
Subjective Progress Note Date: 08/12/21 Principal diagnosis: Left lower extremity cellulitis Patient is a 71 year old male who presented to hospital with acute left lower extremity pain swelling and redness and has been diagnosed with left lower extremity cellulitis. On today's evaluation that is 08/12/2021, the patient denies having any fever or any chills the patient is breathing comfortably no chest pain shortness breath or cough no abdominal pain overall swelling redness to left leg is slightly decreased in intensity Objective - Vital Signs Vital signs: Vital Signs Temp 98.5 F 08/12/21 19:06 Pulse 60 08/12/21 19:06 Resp 16 08/12/21 19:06 BP 120/69 08/12/21 19:06 Pulse Ox 95 08/12/21 19:06 FiO2 Intake & Output 08/12/21 08/12/21 08/13/21 06:59 18:59 06:59 Output Total 400 200 Balance -400 -200 Output: Urine 400 200 Other: Voiding Method Urinal Urinal # Voids 1 3 1 # Bowel Movements 1 - Exam GENERAL DESCRIPTION: An elderly male lying in bed in no distress RESPIRATORY SYSTEM: Unlabored breathing , decreased breath sounds at bases HEART: S1 S2 regular rate and rhythm , ABDOMEN: Soft , no tenderness EXTREMITIES: Left leg swelling and redness has decreased in intensity - Labs CBC & Chem 7: 08/12/21 06:38 08/12/21 06:38 Labs: Abnormal Lab Results - Last 24 Hours (Table) 08/12/21 08/12/21 08/12/21 Range/Units 06:38 06:38 06:58 RBC 4.14 L (4.40-5.60) X 10*6/uL Hgb 11.9 L (13.0-17.0) g/dL Hct 36.2 L (39.6-50.0) % Immature Gran # 0.07 H (0.00-0.04) X 10*3/uL Monocytes # 1.01 H (0.20-1.00) X 10*3/uL Glucose 122 H (70-110) mg/dL POC Glucose (mg/dL) 121 H (70-110) mg/dL Calcium 7.8 L (8.7-10.3) mg/dL 08/12/21 08/12/21 08/12/21 Range/Units 11:34 16:39 19:51 RBC (4.40-5.60) X 10*6/uL Hgb (13.0-17.0) g/dL Hct (39.6-50.0) % Immature Gran # (0.00-0.04) X 10*3/uL Monocytes # (0.20-1.00) X 10*3/uL Glucose (70-110) mg/dL POC Glucose (mg/dL) 171 H 128 H 173 H (70-110) mg/dL Calcium (8.7-10.3) mg/dL Microbiology - Last 24 Hours (Table) 08/10/21 22:00 Blood Culture - Preliminary Blood No Growth after 24 hours 08/10/21 20:25 Blood Culture - Preliminary Blood No Growth after 24 hours Assessment and Plan (1) Cellulitis of left lower extremity Current Visit: Yes Status: Acute Code(s): L03.116 - CELLULITIS OF LEFT LOWER LIMB SNOMED Code(s): 891158245 Plan: 1patient presented to hospital acute left lower extremity cellulitis in this patient who did have diffuse swelling and redness more likely streptococcal disease clinically not behaving as MRSA or gram-negative infection. 2 RN has been advised again to Filiberto area of the redness left leg and apply Nitish wrap to the left leg from just above the toe to below the knee 3patient to continue with cefazolin 2 g every 8 hours. Time with Patient: Less than 30
[2021-08-13] MEDS: MORPHINE SULFATE 4 MG/ML SYRINGE IVP PRN ×3 (03:54→20:16)
[2021-08-13] MEDS: SODIUM CHLORIDE 0.9% 1,000 ML IV SCH (03:57)
[2021-08-13 06:54] LABS: Glucose,Whole Blood 119 mg/dL (70-110)
[2021-08-13] MEDS: INSULIN ASPART (NovoLOG) 100 UNIT/ML VIAL SQ SCH ×4 (07:06→21:19)
[2021-08-13] MEDS: FAMOTIDINE 20 MG/2 ML VIAL IV SCH (07:06)
[2021-08-13] MEDS: HEPARIN SODIUM,PORCINE/PF 5,000 UNIT/0.5 ML SYRINGE SQ SCH ×2 (07:07→20:56)
[2021-08-13] MEDS: NICOTINE 14MG/24HR PATCH TRANSDERM SCH (07:57)
[2021-08-13] MEDS: HYDROcodone/APAP 7.5-325MG 1 EACH TAB PO PRN ×2 (08:24→21:21)
[2021-08-13 09:27] LABS: Basophils # (A) 0.05 X 10*3/uL (0.00-0.10); Basophils % (A) 0.5 %; Eosinophils # (A) 0.37 X 10*3/uL (0.04-0.35); Eosinophils % (A) 3.5 %; HCT 36.6 % (39.6-50.0); HGB 11.5 g/dL (13.0-17.0); Immature Grans, Automated 1.1 %; Lymphocytes # (A) 1.14 X 10*3/uL (0.90-5.00); Lymphocytes % (A) 10.8 %; MCH 27.7 pg (27.0-32.0); MCHC 31.4 g/dL (32.0-37.0); MCV 88.2 fL (80.0-97.0); Mean Platelet Volume 11.9 fL (9.5-12.2); Monocytes # (A) 0.95 X 10*3/uL (0.20-1.00); NRBC Per 100 WBC 0 /100 WBCS (0.0-0.0); Neutrophils # (A) 7.97 X 10*3/uL (1.80-7.70); Neutrophils % (A) 75.1 %; Platelet Count 157 X 10*3/uL (140-440); RBC 4.15 X 10*6/uL (4.40-5.60); RDW 13.3 % (11.5-14.5)
[2021-08-13 09:34] LABS: African American GFR (CKD) 104.3 (60.0-200.0); Anion Gap 9.4 mmol/L (10.00-18.00); BUN/Creat Ratio 14.3 Ratio (12.00-20.00); Blood Urea Nitrogen 11.8 mg/dL (9.0-27.0); Calcium 7.9 mg/dL (8.7-10.3); Carbon Dioxide 21.9 mmol/L (20.0-27.5); Potassium 4.1 mmol/L (3.5-5.5)
[2021-08-13] MEDS: METOPROLOL TARTRATE 25 MG TAB PO SCH ×2 (09:36→21:21)
--- NOTE | 2021-08-13 10:54 | P.PN ---
Subjective Progress Note Date: 08/13/21 Principal diagnosis: Cellulitis left lower extremity. Abrasion left lower leg. This is a 71-year-old male who we are following regarding cellulitis to his left lower extremity. He has had slight improvement in his swelling and redness. He has no new complaints or concerns today. Vital signs are stable. Objective - Vital Signs Vital signs: Vital Signs Temp 98.2 F 08/13/21 08:00 Pulse 64 08/13/21 09:33 Resp 17 08/13/21 02:00 BP 112/54 08/13/21 09:33 Pulse Ox 98 08/13/21 08:00 FiO2 Intake & Output 08/12/21 08/13/21 08/13/21 18:59 06:59 18:59 Output Total 750 470 Balance -750 -470 Output: Urine 750 470 Other: Voiding Method Urinal Urinal # Voids 3 2 - Exam This is a pleasant 71-year-old male in no acute distress. He is alert and oriented 3. Exam of the left leg reveals some remaining erythema at the distal aspect of the lower leg. He has full foot and ankle motion without difficulty or pain. Neurovascular status to the lower extremity is intact. - Labs CBC & Chem 7: 08/13/21 03:49 08/13/21 03:49 Labs: Abnormal Lab Results - Last 24 Hours (Table) 08/12/21 08/12/21 08/12/21 Range/Units 06:38 06:38 11:34 WBC (4.50-10.00) X 10*3/uL RBC 4.14 L (4.40-5.60) X 10*6/uL Hgb 11.9 L (13.0-17.0) g/dL Hct 36.2 L (39.6-50.0) % MCHC (32.0-37.0) g/dL Immature Gran # 0.07 H (0.00-0.04) X 10*3/uL Neutrophils # (1.80-7.70) X 10*3/uL Monocytes # 1.01 H (0.20-1.00) X 10*3/uL Eosinophils # (0.04-0.35) X 10*3/uL Anion Gap (10.00-18.00) mmol/L Glucose 122 H (70-110) mg/dL POC Glucose (mg/dL) 171 H (70-110) mg/dL Calcium 7.8 L (8.7-10.3) mg/dL 08/12/21 08/12/21 08/13/21 Range/Units 16:39 19:51 03:49 WBC 10.60 H (4.50-10.00) X 10*3/uL RBC 4.15 L (4.40-5.60) X 10*6/uL Hgb 11.5 L (13.0-17.0) g/dL Hct 36.6 L (39.6-50.0) % MCHC 31.4 L (32.0-37.0) g/dL Immature Gran # 0.12 H (0.00-0.04) X 10*3/uL Neutrophils # 7.97 H (1.80-7.70) X 10*3/uL Monocytes # (0.20-1.00) X 10*3/uL Eosinophils # 0.37 H (0.04-0.35) X 10*3/uL Anion Gap (10.00-18.00) mmol/L Glucose (70-110) mg/dL POC Glucose (mg/dL) 128 H 173 H (70-110) mg/dL Calcium (8.7-10.3) mg/dL 08/13/21 08/13/21 Range/Units 03:49 06:53 WBC (4.50-10.00) X 10*3/uL RBC (4.40-5.60) X 10*6/uL Hgb (13.0-17.0) g/dL Hct (39.6-50.0) % MCHC (32.0-37.0) g/dL Immature Gran # (0.00-0.04) X 10*3/uL Neutrophils # (1.80-7.70) X 10*3/uL Monocytes # (0.20-1.00) X 10*3/uL Eosinophils # (0.04-0.35) X 10*3/uL Anion Gap 9.40 L (10.00-18.00) mmol/L Glucose 116 H (70-110) mg/dL POC Glucose (mg/dL) 119 H (70-110) mg/dL Calcium 7.9 L (8.7-10.3) mg/dL Microbiology - Last 24 Hours (Table) 08/10/21 22:00 Blood Culture - Preliminary Blood No Growth after 48 hours 08/10/21 20:25 Blood Culture - Preliminary Blood No Growth after 48 hours Assessment and Plan (1) Abrasion, lower leg, anterior Current Visit: Yes Status: Acute Code(s): S80.819A - ABRASION, UNSPECIFIED LOWER LEG, INITIAL ENCOUNTER SNOMED Code(s): 151466405 (2) Cellulitis of left lower extremity Current Visit: Yes Status: Acute Code(s): L03.116 - CELLULITIS OF LEFT LOWER LIMB SNOMED Code(s): 482622704 (3) Chills Current Visit: Yes Status: Acute Code(s): R68.83 - CHILLS (WITHOUT FEVER) SNOMED Code(s): 95932383 Plan: The clinical findings are discussed the patient. I feel that the superficial abrasion to the anterior aspect of his leg is more likely the culprit causing the cellulitis. I do not believe that the tick bite is related. Continue antibiotics per infectious disease. We will sign off from an orthopedic standpoint. Please call if we can be of any assistance further care of this patient.
[2021-08-13 11:29] LABS: Glucose,Whole Blood 213 mg/dL (70-110)
--- NOTE | 2021-08-13 16:58 | P.PN ---
Subjective This is a pleasant 71 years old male with past medical history of hypertension , hyperlipidemia. Is a patient of Dr. Bocanegra pt states he was playing like a baseball game last friday and next day the back of his left leg calf started hurting him, and started getting more red swollen and tender, he presents with left leg cellulitis mainly involving the distal left leg looks extends to lesser extent in the left foot and more on the medial thigh up to the groin. The leg is warm, erythematous and tender and swollen Patient denies any other complaints. Patient states he is diabetic but he is on diet control only. Denies chest pain or dyspnea. No abdominal pain vomiting or diarrhea. No urinary complaints. No headache or weakness. he smokes less than half the day and he was counseled that he does not want to quit and he declined nicotine patch, no alcohol or illicit drugs. Vitas looks stable. Mild leukocytosis at 11.8. Mild thrombocytopenia on 131. BNP and d, And painfulided enzymes are unremarkable. Glucose is 226. In the emergency room patient was started on IV vancomycin. ID consult 08/12/2021 Left leg cellulitis today significantly improved, his redness and erythema in the left thigh is almost completely resolved and his cellulitis now is confined to the about two thirds of the left leg mainly distal part. Pain is better. With this improvement vancomycin was discontinued and continued with cefazolin He tolerated that well and hemodynamically stable No known 50 mL per hour 08/13/2021 Left leg cellulitis is improving No other new complaint Continue with cefazolin and normal saline 50 mm per hour Objective - Vital Signs Vital signs: Vital Signs Temp 98.2 F 08/13/21 08:00 Pulse 64 08/13/21 09:33 Resp 17 08/13/21 02:00 BP 112/54 08/13/21 09:33 Pulse Ox 98 08/13/21 08:00 FiO2 Intake & Output 08/12/21 08/13/21 08/13/21 18:59 06:59 18:59 Output Total 750 470 Balance -750 -470 Output: Urine 750 470 Other: Voiding Method Urinal Urinal # Voids 3 2 - Exam GENERAL: The patient is alert and oriented x3, not in any acute distress. Well developed, well nourished. HEENT: Pupils are round and equally reacting to light. EOMI. No scleral icterus. No conjunctival pallor. Normocephalic, atraumatic. No pharyngeal erythema. No t hyromegaly. CARDIOVASCULAR: S1 and S2 present. No murmurs, rubs, or gallops. PULMONARY: Chest is clear to auscultation, no wheezing or crackles. ABDOMEN: Soft, nontender, nondistended, normoactive bowel sounds. No palpable organomegaly. MUSCULOSKELETAL: No joint swelling or deformity. -EXTREMITIES: No cyanosis, clubbing, or pedal edema. Left leg cellulitis, improved NEUROLOGICAL: Gross neurological examination did not reveal any focal deficits. SKIN: No rashes. no petechiae. - Labs CBC & Chem 7: 08/13/21 03:49 08/13/21 03:49 Labs: Abnormal Lab Results - Last 24 Hours (Table) 08/12/21 08/12/21 08/12/21 Range/Units 06:38 06:38 11:34 WBC (4.50-10.00) X 10*3/uL RBC 4.14 L (4.40-5.60) X 10*6/uL Hgb 11.9 L (13.0-17.0) g/dL Hct 36.2 L (39.6-50.0) % MCHC (32.0-37.0) g/dL Immature Gran # 0.07 H (0.00-0.04) X 10*3/uL Neutrophils # (1.80-7.70) X 10*3/uL Monocytes # 1.01 H (0.20-1.00) X 10*3/uL Eosinophils # (0.04-0.35) X 10*3/uL Anion Gap (10.00-18.00) mmol/L Glucose 122 H (70-110) mg/dL POC Glucose (mg/dL) 171 H (70-110) mg/dL Calcium 7.8 L (8.7-10.3) mg/dL 08/12/21 08/12/21 08/13/21 Range/Units 16:39 19:51 03:49 WBC 10.60 H (4.50-10.00) X 10*3/uL RBC 4.15 L (4.40-5.60) X 10*6/uL Hgb 11.5 L (13.0-17.0) g/dL Hct 36.6 L (39.6-50.0) % MCHC 31.4 L (32.0-37.0) g/dL Immature Gran # 0.12 H (0.00-0.04) X 10*3/uL Neutrophils # 7.97 H (1.80-7.70) X 10*3/uL Monocytes # (0.20-1.00) X 10*3/uL Eosinophils # 0.37 H (0.04-0.35) X 10*3/uL Anion Gap (10.00-18.00) mmol/L Glucose (70-110) mg/dL POC Glucose (mg/dL) 128 H 173 H (70-110) mg/dL Calcium (8.7-10.3) mg/dL 08/13/21 08/13/21 Range/Units 03:49 06:53 WBC (4.50-10.00) X 10*3/uL RBC (4.40-5.60) X 10*6/uL Hgb (13.0-17.0) g/dL Hct (39.6-50.0) % MCHC (32.0-37.0) g/dL Immature Gran # (0.00-0.04) X 10*3/uL Neutrophils # (1.80-7.70) X 10*3/uL Monocytes # (0.20-1.00) X 10*3/uL Eosinophils # (0.04-0.35) X 10*3/uL Anion Gap 9.40 L (10.00-18.00) mmol/L Glucose 116 H (70-110) mg/dL POC Glucose (mg/dL) 119 H (70-110) mg/dL Calcium 7.9 L (8.7-10.3) mg/dL Microbiology - Last 24 Hours (Table) 08/10/21 22:00 Blood Culture - Preliminary Blood No Growth after 48 hours 08/10/21 20:25 Blood Culture - Preliminary Blood No Growth after 48 hours Assessment and Plan Assessment: Left lower extremity cellulitis Nicotine dependence Hypertension Hyperlipidemia Plan: This is a pleasant 71 years old female who presents with acute cellulitis Continue with antibiotics, currently on cefazolin Infectious disease team consult Orthopedic consult Labs and medication were reviewed.. Continue same treatment. Continue with symptomatic treatment. Resume home medication. Monitor lytes and vitals. DVT and GI prophylaxis. Further recommendations as per clinical course of the patient DVT prophylaxis: Subcutaneous heparin GI Prophylaxis: Pepcid PT/OT: Pending Prognosis is guarded
[2021-08-13 17:02] LABS: Glucose,Whole Blood 116 mg/dL (70-110)
[2021-08-13] MEDS: CLINDAMYCIN 900 MG in DEXTROSE 5% IN WATER 50 ML IVPB SCH ×2 (17:32)
[2021-08-13 20:50] LABS: Glucose,Whole Blood 154 mg/dL (70-110)
[2021-08-13] MEDS: ATORVASTATIN 20 MG TAB PO SCH (20:56)
[2021-08-13] MEDS: FAMOTIDINE 20 MG TAB PO SCH (20:56)
[2021-08-13] MEDS: ASPIRIN 81 MG PO SCH (21:21)
[2021-08-14] MEDS: SODIUM CHLORIDE 0.9% 1,000 ML IV SCH
[2021-08-14] MEDS: MORPHINE SULFATE 4 MG/ML SYRINGE IVP PRN ×4 (05:59→20:59)
[2021-08-14] MEDS: CLINDAMYCIN 900 MG in DEXTROSE 5% IN WATER 50 ML IVPB SCH ×6 (07:25→16:24)
[2021-08-14] MEDS: HYDROcodone/APAP 7.5-325MG 1 EACH TAB PO PRN ×3 (07:25→23:40)
[2021-08-14] MEDS: METOPROLOL TARTRATE 25 MG TAB PO SCH ×2 (07:25→20:56)
[2021-08-14] MEDS: FAMOTIDINE 20 MG TAB PO SCH ×2 (07:25→20:56)
[2021-08-14] MEDS: HEPARIN SODIUM,PORCINE/PF 5,000 UNIT/0.5 ML SYRINGE SQ SCH ×2 (07:26→20:56)
[2021-08-14] MEDS: NICOTINE 14MG/24HR PATCH TRANSDERM SCH (07:26)
[2021-08-14] MEDS: INSULIN ASPART (NovoLOG) 100 UNIT/ML VIAL SQ SCH ×4 (07:37→20:57)
[2021-08-14 12:20] LABS: Glucose,Whole Blood 148 mg/dL (70-110)
[2021-08-14 16:27] LABS: Glucose,Whole Blood 176 mg/dL (70-110)
--- NOTE | 2021-08-14 17:01 | P.PN ---
Subjective Progress Note Date: 08/13/21 Principal diagnosis: Left lower extremity cellulitis Patient is a 71 year old male who presented to hospital with acute left lower extremity pain swelling and redness and has been diagnosed with left lower extremity cellulitis. On today's evaluation that is , the patient remains to be afebrile, the patient is breathing comfortably on room air, the patient denies chest pain shortness breath or cough no abdominal pain overall swelling redness to left leg is slightly decreased in intensity Objective - Vital Signs Vital signs: Vital Signs Temp 98.2 F 08/13/21 08:00 Pulse 64 08/13/21 09:33 Resp 17 08/13/21 02:00 BP 112/54 08/13/21 09:33 Pulse Ox 98 08/13/21 08:00 FiO2 Intake & Output 08/12/21 08/13/21 08/13/21 18:59 06:59 18:59 Output Total 750 470 Balance -750 -470 Output: Urine 750 470 Other: Voiding Method Urinal Urinal # Voids 3 2 - Exam GENERAL DESCRIPTION: An elderly male lying in bed in no distress RESPIRATORY SYSTEM: Unlabored breathing , decreased breath sounds at bases HEART: S1 S2 regular rate and rhythm , ABDOMEN: Soft , no tenderness EXTREMITIES: Left leg swelling and redness has decreased in intensity - Labs CBC & Chem 7: 08/13/21 03:49 08/13/21 03:49 Labs: Abnormal Lab Results - Last 24 Hours (Table) 08/12/21 08/12/21 08/13/21 Range/Units 16:39 19:51 03:49 WBC 10.60 H (4.50-10.00) X 10*3/uL RBC 4.15 L (4.40-5.60) X 10*6/uL Hgb 11.5 L (13.0-17.0) g/dL Hct 36.6 L (39.6-50.0) % MCHC 31.4 L (32.0-37.0) g/dL Immature Gran # 0.12 H (0.00-0.04) X 10*3/uL Neutrophils # 7.97 H (1.80-7.70) X 10*3/uL Eosinophils # 0.37 H (0.04-0.35) X 10*3/uL Anion Gap (10.00-18.00) mmol/L Glucose (70-110) mg/dL POC Glucose (mg/dL) 128 H 173 H (70-110) mg/dL Calcium (8.7-10.3) mg/dL 08/13/21 08/13/21 08/13/21 Range/Units 03:49 06:53 11:28 WBC (4.50-10.00) X 10*3/uL RBC (4.40-5.60) X 10*6/uL Hgb (13.0-17.0) g/dL Hct (39.6-50.0) % MCHC (32.0-37.0) g/dL Immature Gran # (0.00-0.04) X 10*3/uL Neutrophils # (1.80-7.70) X 10*3/uL Eosinophils # (0.04-0.35) X 10*3/uL Anion Gap 9.40 L (10.00-18.00) mmol/L Glucose 116 H (70-110) mg/dL POC Glucose (mg/dL) 119 H 213 H (70-110) mg/dL Calcium 7.9 L (8.7-10.3) mg/dL Microbiology - Last 24 Hours (Table) 08/10/21 22:00 Blood Culture - Preliminary Blood No Growth after 48 hours 08/10/21 20:25 Blood Culture - Preliminary Blood No Growth after 48 hours Assessment and Plan (1) Cellulitis of left lower extremity Current Visit: Yes Status: Acute Code(s): L03.116 - CELLULITIS OF LEFT LOWER LIMB SNOMED Code(s): 817233121 Plan: 1patient presented to hospital acute left lower extremity cellulitis in this patient who did have diffuse swelling and redness more likely streptococcal disease clinically not behaving as MRSA or gram-negative infection. 2 patient to continue with cefazolin 2 g every 8 hours however in view of extensive cellulitis will add clindamycin for added benefit. Time with Patient: Less than 30
--- NOTE | 2021-08-14 17:03 | P.PN ---
Subjective Progress Note Date: 08/14/21 Principal diagnosis: Left lower extremity cellulitis Patient is a 71 year old male who presented to hospital with acute left lower extremity pain swelling and redness and has been diagnosed with left lower extremity cellulitis. On today's evaluation that is 08/14/2021, the patient denies any fever or chills, the patient is breathing comfortably on room air, the patient denies chest pain shortness breath or cough no abdominal pain , patient currently denies significant swelling to the left leg redness mildly decreased however has developed a blister on the posterior leg Objective - Vital Signs Vital signs: Vital Signs Temp 98.5 F 08/14/21 14:00 Pulse 60 08/14/21 14:00 Resp 18 08/14/21 14:00 BP 118/71 08/14/21 14:00 Pulse Ox 95 08/14/21 14:00 FiO2 Intake & Output 08/13/21 08/14/21 08/14/21 18:59 06:59 18:59 Output Total 770 600 Balance -770 -600 Output: Urine 770 600 Other: Voiding Method Urinal Urinal Urinal # Voids 4 - Exam GENERAL DESCRIPTION: An elderly male lying in bed in no distress RESPIRATORY SYSTEM: Unlabored breathing , decreased breath sounds at bases HEART: S1 S2 regular rate and rhythm , ABDOMEN: Soft , no tenderness EXTREMITIES: Left leg swelling and redness with a blister to the posterior leg with some purulent drainage - Labs CBC & Chem 7: 08/13/21 03:49 08/13/21 03:49 Labs: Abnormal Lab Results - Last 24 Hours (Table) 08/13/21 08/13/21 08/14/21 Range/Units 17:00 20:48 12:18 POC Glucose (mg/dL) 116 H 154 H 148 H (70-110) mg/dL 08/14/21 Range/Units 16:26 POC Glucose (mg/dL) 176 H (70-110) mg/dL Microbiology - Last 24 Hours (Table) 08/10/21 22:00 Blood Culture - Preliminary Blood No Growth after 72 hours 08/10/21 20:25 Blood Culture - Preliminary Blood No Growth after 72 hours Assessment and Plan (1) Cellulitis of left lower extremity Current Visit: Yes Status: Acute Code(s): L03.116 - CELLULITIS OF LEFT LOWER LIMB SNOMED Code(s): 703661130 Plan: 1patient presented to hospital acute left lower extremity cellulitis in this patient who did have diffuse swelling and redness more likely streptococcal disease clinically not behaving as MRSA or gram-negative infection. 2 patient to continue with cefazolin and clindamycin, along with a septic hip the swelling down 3we'll obtain a culture from the blister to the left posterior leg and adjusted antibiotic further if needed Time with Patient: Less than 30
--- NOTE | 2021-08-14 18:38 | P.PN ---
Subjective This is a pleasant 71 years old male with past medical history of hypertension , hyperlipidemia. Is a patient of Dr. Bocanegra pt states he was playing like a baseball game last friday and next day the back of his left leg calf started hurting him, and started getting more red swollen and tender, he presents with left leg cellulitis mainly involving the distal left leg looks extends to lesser extent in the left foot and more on the medial thigh up to the groin. The leg is warm, erythematous and tender and swollen Patient denies any other complaints. Patient states he is diabetic but he is on diet control only. Denies chest pain or dyspnea. No abdominal pain vomiting or diarrhea. No urinary complaints. No headache or weakness. he smokes less than half the day and he was counseled that he does not want to quit and he declined nicotine patch, no alcohol or illicit drugs. Vitas looks stable. Mild leukocytosis at 11.8. Mild thrombocytopenia on 131. BNP and d, And painfulided enzymes are unremarkable. Glucose is 226. In the emergency room patient was started on IV vancomycin. ID consult 08/12/2021 Left leg cellulitis today significantly improved, his redness and erythema in the left thigh is almost completely resolved and his cellulitis now is confined to the about two thirds of the left leg mainly distal part. Pain is better. With this improvement vancomycin was discontinued and continued with cefazolin He tolerated that well and hemodynamically stable No known 50 mL per hour 08/13/2021 Left leg cellulitis is improving No other new complaint Continue with cefazolin and normal saline 50 mm per hour 08/14/2021 Left leg cellulitis looks still right swollen and warm clindamycin is admitted for infectious disease team recommendation to the cefazolin. We'll keep monitoring closely. Repeat labs in the morning Objective - Vital Signs Vital signs: Vital Signs Temp 98.5 F 08/14/21 14:00 Pulse 60 08/14/21 14:00 Resp 18 08/14/21 14:00 BP 118/71 08/14/21 14:00 Pulse Ox 95 08/14/21 14:00 FiO2 Intake & Output 08/13/21 08/14/21 08/14/21 18:59 06:59 18:59 Intake Total 296 Output Total 770 600 Balance -770 -600 296 Intake: Oral 296 Output: Urine 770 600 Other: Voiding Method Urinal Urinal Urinal # Voids 4 2 - Exam GENERAL: The patient is alert and oriented x3, not in any acute distress. Well developed, well nourished. HEENT: Pupils are round and equally reacting to light. EOMI. No scleral icterus. No conjunctival pallor. Normocephalic, atraumatic. No pharyngeal erythema. No thyromegaly. CARDIOVASCULAR: S1 and S2 present. No murmurs, rubs, or gallops. PULMONARY: Chest is clear to auscultation, no wheezing or crackles. ABDOMEN: Soft, nontender, nondistended, normoactive bowel sounds. No palpable or ganomegaly. MUSCULOSKELETAL: No joint swelling or deformity. -EXTREMITIES: No cyanosis, clubbing, or pedal edema. Left leg cellulitis, improved NEUROLOGICAL: Gross neurological examination did not reveal any focal deficits. SKIN: No rashes. no petechiae. - Labs CBC & Chem 7: 08/13/21 03:49 08/13/21 03:49 Labs: Abnormal Lab Results - Last 24 Hours (Table) 08/13/21 08/14/21 08/14/21 Range/Units 20:48 12:18 16:26 POC Glucose (mg/dL) 154 H 148 H 176 H (70-110) mg/dL Microbiology - Last 24 Hours (Table) 08/10/21 22:00 Blood Culture - Preliminary Blood No Growth after 72 hours 08/10/21 20:25 Blood Culture - Preliminary Blood No Growth after 72 hours Assessment and Plan Assessment: Left lower extremity cellulitis Nicotine dependence Hypertension Hyperlipidemia Plan: This is a pleasant 71 years old female who presents with acute cellulitis Continue with antibiotics, currently on cefazolin and clindamycin per ID team Infectious disease team consult Orthopedic consult Follow-up culture results Labs and medication were reviewed.. Continue same treatment. Continue with sy mptomatic treatment. Resume home medication. Monitor lytes and vitals. DVT and GI prophylaxis. Further recommendations as per clinical course of the patient DVT prophylaxis: Subcutaneous heparin GI Prophylaxis: Pepcid PT/OT: Pending Prognosis is guarded
[2021-08-14 20:52] LABS: Glucose,Whole Blood 131 mg/dL (70-110)
[2021-08-14] MEDS: ATORVASTATIN 20 MG TAB PO SCH (20:56)
[2021-08-14] MEDS: ASPIRIN 81 MG PO SCH (20:56)
[2021-08-15] MEDS: CLINDAMYCIN 900 MG in DEXTROSE 5% IN WATER 50 ML IVPB SCH ×8 (01:55→23:28)
[2021-08-15] MEDS: SODIUM CHLORIDE 0.9% 1,000 ML IV SCH (01:57)
[2021-08-15] MEDS: MORPHINE SULFATE 4 MG/ML SYRINGE IVP PRN ×3 (05:08→23:03)
[2021-08-15] MEDS: NICOTINE 14MG/24HR PATCH TRANSDERM SCH (06:43)
[2021-08-15 07:26] LABS: Glucose,Whole Blood 113 mg/dL (70-110)
[2021-08-15] MEDS: INSULIN ASPART (NovoLOG) 100 UNIT/ML VIAL SQ SCH ×4 (07:34→21:27)
[2021-08-15] MEDS: HYDROcodone/APAP 7.5-325MG 1 EACH TAB PO PRN ×2 (07:35→17:42)
[2021-08-15] MEDS: FAMOTIDINE 20 MG TAB PO SCH ×2 (07:36→20:54)
[2021-08-15] MEDS: METOPROLOL TARTRATE 25 MG TAB PO SCH ×2 (07:36→20:54)
[2021-08-15] MEDS: HEPARIN SODIUM,PORCINE/PF 5,000 UNIT/0.5 ML SYRINGE SQ SCH ×2 (07:37→20:54)
[2021-08-15 10:30] LABS: Basophils # (A) 0.06 X 10*3/uL (0.00-0.10); Basophils % (A) 0.7 %; Eosinophils # (A) 0.39 X 10*3/uL (0.04-0.35); Eosinophils % (A) 4.7 %; HCT 38.2 % (39.6-50.0); HGB 12.2 g/dL (13.0-17.0); Immature Grans, Automated 1.8 %; Lymphocytes # (A) 1.24 X 10*3/uL (0.90-5.00); MCH 27.9 pg (27.0-32.0); MCHC 31.9 g/dL (32.0-37.0); MCV 87.2 fL (80.0-97.0); Mean Platelet Volume 11.3 fL (9.5-12.2); Monocytes # (A) 0.85 X 10*3/uL (0.20-1.00); Monocytes % (A) 10.3 %; NRBC Per 100 WBC 0 /100 WBCS (0.0-0.0); Neutrophils # (A) 5.57 X 10*3/uL (1.80-7.70); Neutrophils % (A) 67.5 %; Platelet Count 237 X 10*3/uL (140-440); RBC 4.38 X 10*6/uL (4.40-5.60); RDW 13.1 % (11.5-14.5); WBC 8.26 X 10*3/uL (4.50-10.00)
[2021-08-15 10:49] LABS: ALT 26 U/L (10-49); AST 31 U/L (14-35); African American GFR (CKD) 91.8 (60.0-200.0); Albumin 2.8 g/dL (3.8-4.9); Albumin/Globulin Ratio 1.21 (1.60-3.17); Alkaline Phosphatase 67 U/L (41-126); BUN/Creat Ratio 12.77 Ratio (12.00-20.00); Bilirubin, Conjugated <0.20 mg/dL (0.20-0.40); Blood Urea Nitrogen 12.4 mg/dL (9.0-27.0); Calcium 8.4 mg/dL (8.7-10.3); Carbon Dioxide 29.3 mmol/L (20.0-27.5); Chloride 102 mmol/L (96-109); Globulin 2.3 g/dL (1.6-3.3); Glucose 114 mg/dL (70-110); Magnesium 2.3 mg/dL (1.5-2.4); Non-African American GFR(CKD) 79.2 (60.0-200.0); Potassium 4.6 mmol/L (3.5-5.5); Sodium 140 mmol/L (135-145); Total Protein 5.1 g/dL (6.2-8.2)
--- NOTE | 2021-08-15 11:27 | P.PN ---
Subjective This is a pleasant 71 years old male with past medical history of hypertension , hyperlipidemia. Is a patient of Dr. Bocanegra pt states he was playing like a baseball game last friday and next day the back of his left leg calf started hurting him, and started getting more red swollen and tender, he presents with left leg cellulitis mainly involving the distal left leg looks extends to lesser extent in the left foot and more on the medial thigh up to the groin. The leg is warm, erythematous and tender and swollen Patient denies any other complaints. Patient states he is diabetic but he is on diet control only. Denies chest pain or dyspnea. No abdominal pain vomiting or diarrhea. No urinary complaints. No headache or weakness. he smokes less than half the day and he was counseled that he does not want to quit and he declined nicotine patch, no alcohol or illicit drugs. Vitas looks stable. Mild leukocytosis at 11.8. Mild thrombocytopenia on 131. BNP and d, And painfulided enzymes are unremarkable. Glucose is 226. In the emergency room patient was started on IV vancomycin. ID consult 08/12/2021 Left leg cellulitis today significantly improved, his redness and erythema in the left thigh is almost completely resolved and his cellulitis now is confined to the about two thirds of the left leg mainly distal part. Pain is better. With this improvement vancomycin was discontinued and continued with cefazolin He tolerated that well and hemodynamically stable No known 50 mL per hour 08/13/2021 Left leg cellulitis is improving No other new complaint Continue with cefazolin and normal saline 50 mm per hour 08/14/2021 Left leg cellulitis looks still right swollen and warm clindamycin is admitted for infectious disease team recommendation to the cefazolin. We'll keep monitoring closely. Repeat labs in the morning 08/15/2021 Patient left leg cellulitis looks better than yesterday. Culture was sent from ruptured blister on his left leg and the result is pending He remains on cefazolin and clindamycin Continue with gentle hydration normal saline at 50 mL per hour Colace for constipation Objective - Vital Signs Vital signs: Vital Signs Temp 98.0 F 08/15/21 08:00 Pulse 53 L 08/15/21 08:00 Resp 18 08/15/21 08:00 BP 132/73 08/15/21 08:00 Pulse Ox 95 08/15/21 08:00 FiO2 Intake & Output 08/14/21 08/15/21 08/15/21 18:59 06:59 18:59 Intake Total 296 Output Total 500 Balance 296 -500 Intake: Oral 296 Output: Urine 500 Other: Voiding Method Urinal Urinal Urinal # Voids 2 - Exam GENERAL: The patient is alert and oriented x3, not in any acute distress. Well developed, well nourished. HEENT: Pupils are round and equally reacting to light. EOMI. No scleral icterus. No conjunctival pallor. Normocephalic, atraumatic. No pharyngeal erythema. No thyromegaly. CARDIOVASCULAR: S1 and S2 present. No murmurs, rubs, or gallops. PULMONARY: Chest is clear to auscultation, no wheezing or crackles. ABDOMEN: Soft, nontender, nondistended, normoactive bowel sounds. No palpable organomegaly. MUSCULOSKELETAL: No joint swelling or deformity. -EXTREMITIES: No cyanosis, clubbing, or pedal edema. Left leg cellulitis, improved NEUROLOGICAL: Gross neurological examination did not reveal any focal deficits. SKIN: No rashes. no petechiae. - Labs CBC & Chem 7: 08/15/21 05:38 08/15/21 05:38 Labs: Abnormal Lab Results - Last 24 Hours (Table) 08/14/21 08/14/21 08/14/21 Range/Units 12:18 16:26 20:45 POC Glucose (mg/dL) 148 H 176 H 131 H (70-110) mg/dL 08/15/21 Range/Units 07:24 POC Glucose (mg/dL) 113 H (70-110) mg/dL Microbiology - Last 24 Hours (Table) 08/10/21 22:00 Blood Culture - Preliminary Blood No Growth after 96 hours 08/10/21 20:25 Blood Culture - Preliminary Blood No Growth after 96 hours Assessment and Plan Assessment: Left lower extremity cellulitis Nicotine dependence Hypertension Hyperlipidemia Plan: This is a pleasant 71 years old female who presents with acute cellulitis Continue with antibiotics, currently on cefazolin and clindamycin per ID team Infectious disease team consult Orthopedic consult Follow-up culture results Labs and medication were reviewed.. Continue same treatment. Continue with symptomatic treatment. Resume home medication. Monitor lytes and vitals. DVT and GI prophylaxis. Further recommendations as per clinical course of the patient DVT prophylaxis: Subcutaneous heparin GI Prophylaxis: Pepcid PT/OT: Pending Prognosis is guarded
[2021-08-15 11:38] LABS: Glucose,Whole Blood 138 mg/dL (70-110)
[2021-08-15] MEDS: DOCUSATE 100 MG CAP PO SCH ×2 (13:41→20:54)
[2021-08-15 16:44] LABS: Glucose,Whole Blood 106 mg/dL (70-110)
[2021-08-15] MEDS: ATORVASTATIN 20 MG TAB PO SCH (20:54)
[2021-08-15] MEDS: ASPIRIN 81 MG PO SCH (20:54)
[2021-08-15 21:03] LABS: Glucose,Whole Blood 201 mg/dL (70-110)
[2021-08-16] MEDS: HYDROcodone/APAP 7.5-325MG 1 EACH TAB PO PRN ×4 (00:40→23:02)
[2021-08-16] MEDS: MORPHINE SULFATE 4 MG/ML SYRINGE IVP PRN ×4 (06:06→20:33)
[2021-08-16] MEDS: SODIUM CHLORIDE 0.9% 1,000 ML IV SCH ×2 (06:44→12:40)
[2021-08-16] MEDS: HEPARIN SODIUM,PORCINE/PF 5,000 UNIT/0.5 ML SYRINGE SQ SCH ×2 (07:06→20:33)
[2021-08-16] MEDS: DOCUSATE 100 MG CAP PO SCH ×2 (07:06→07:07)
[2021-08-16] MEDS: METOPROLOL TARTRATE 25 MG TAB PO SCH ×2 (07:07→20:33)
[2021-08-16] MEDS: CLINDAMYCIN 900 MG in DEXTROSE 5% IN WATER 50 ML IVPB SCH ×4 (07:07→16:03)
[2021-08-16] MEDS: FAMOTIDINE 20 MG TAB PO SCH ×2 (07:07→20:32)
[2021-08-16] MEDS: NICOTINE 14MG/24HR PATCH TRANSDERM SCH (07:08)
[2021-08-16] MEDS: INSULIN ASPART (NovoLOG) 100 UNIT/ML VIAL SQ SCH ×4 (07:13→20:27)
[2021-08-16 07:15] LABS: Glucose,Whole Blood 102 mg/dL (70-110)
--- NOTE | 2021-08-16 07:21 | P.PN ---
Subjective Progress Note Date: 08/15/21 Principal diagnosis: Left lower extremity cellulitis Patient is a 71 year old male who presented to hospital with acute left lower extremity pain swelling and redness and has been diagnosed with left lower extremity cellulitis. On today's evaluation that is 08/15/2021, the patient remains to be afebrile, the patient is breathing comfortably on room air, the patient denies chest pain shortness breath or cough no abdominal pain , patient denies any worsening pain to the left leg , the patient left leg redness mildly decreased and no new blisters Objective - Vital Signs Vital signs: Vital Signs Temp 98.0 F 08/15/21 08:00 Pulse 53 L 08/15/21 08:00 Resp 18 08/15/21 08:00 BP 132/73 08/15/21 08:00 Pulse Ox 95 08/15/21 08:00 FiO2 Intake & Output 08/14/21 08/15/21 08/15/21 18:59 06:59 18:59 Intake Total 296 Output Total 500 Balance 296 -500 Intake: Oral 296 Output: Urine 500 Other: Voiding Method Urinal Urinal Urinal # Voids 2 - Exam GENERAL DESCRIPTION: An elderly male lying in bed in no distress RESPIRATORY SYSTEM: Unlabored breathing , decreased breath sounds at bases HEART: S1 S2 regular rate and rhythm , ABDOMEN: Soft , no tenderness EXTREMITIES: Left leg swelling and redness with a blister to the posterior leg with some purulent drainage - Labs CBC & Chem 7: 08/15/21 05:38 08/15/21 05:38 Labs: Abnormal Lab Results - Last 24 Hours (Table) 08/14/21 08/14/21 08/15/21 Range/Units 16:26 20:45 05:38 RBC 4.38 L (4.40-5.60) X 10*6/uL Hgb 12.2 L (13.0-17.0) g/dL Hct 38.2 L (39.6-50.0) % MCHC 31.9 L (32.0-37.0) g/dL Immature Gran # 0.15 H (0.00-0.04) X 10*3/uL Eosinophils # 0.39 H (0.04-0.35) X 10*3/uL Carbon Dioxide (20.0-27.5) mmol/L Anion Gap (10.00-18.00) mmol/L Glucose (70-110) mg/dL POC Glucose (mg/dL) 176 H 131 H (70-110) mg/dL Calcium (8.7-10.3) mg/dL Conjugated Bilirubin (0.20-0.40) mg/dL Total Protein (6.2-8.2) g/dL Albumin (3.8-4.9) g/dL Albumin/Globulin Ratio (1.60-3.17) g/dL 08/15/21 08/15/21 08/15/21 Range/Units 05:38 07:24 11:37 RBC (4.40-5.60) X 10*6/uL Hgb (13.0-17.0) g/dL Hct (39.6-50.0) % MCHC (32.0-37.0) g/dL Immature Gran # (0.00-0.04) X 10*3/uL Eosinophils # (0.04-0.35) X 10*3/uL Carbon Dioxide 29.3 H (20.0-27.5) mmol/L Anion Gap 8.70 L (10.00-18.00) mmol/L Glucose 114 H (70-110) mg/dL POC Glucose (mg/dL) 113 H 138 H (70-110) mg/dL Calcium 8.4 L (8.7-10.3) mg/dL Conjugated Bilirubin <0.20 L (0.20-0.40) mg/dL Total Protein 5.1 L (6.2-8.2) g/dL Albumin 2.8 L (3.8-4.9) g/dL Albumin/Globulin Ratio 1.21 L (1.60-3.17) g/dL Microbiology - Last 24 Hours (Table) 08/10/21 22:00 Blood Culture - Preliminary Blood No Growth after 96 hours 08/10/21 20:25 Blood Culture - Preliminary Blood No Growth after 96 hours Assessment and Plan (1) Cellulitis of left lower extremity Current Visit: Yes Status: Acute Code(s): L03.116 - CELLULITIS OF LEFT LOWER LIMB SNOMED Code(s): 306245535 Plan: 1patient presented to hospital acute left lower extremity cellulitis in this patient who did have diffuse swelling and redness more likely streptococcal disease clinically not behaving as MRSA or gram-negative infection. 2 patient to continue with cefazolin and clindamycin, along with ANITA wrap to keep the swelling down 3local cultures obtained yesterday so far pending Time with Patient: Less than 30
--- NOTE | 2021-08-16 10:24 | CDI ---
Documentation Clarification Form Date: 08/16/2021 10:06:02 AM From: Kim Diamond CCS, CCDS Admit Date: 08/10/2021 10:10:00 PM Patient Name: Steven Vallejo Visit Number: [id number] Discharge Date: ATTENTION: The Clinical Documentation Specialists (CDI) and [facility] Coding Staff appreciate your assistance in clarifying documentation. Please respond to the clarification below the line at the bottom and electronically sign. The CDI & [facility] Coding staff will review the response and follow-up if needed. Please note: Queries are made part of the Legal Health Record. If you have any questions, please contact the author of this message via ITS. Dr. Rider E Sheet: Per the 08/11 History & Physical and subsequent Progress Notes, the patient states he is diabetic but is on diet control only. Additional specificity regarding the diabetes diagnosis is requested. History/Risk Factors per the 08/11 H/P: Hypertension, Hyperlipidemia, Diabetic (per the patient: diet controlled, Smoker: <1/2ppd, Chest Pain/Angina, Cellulitis, VA, Aortic Bovine Valve Replacement. Clinical Indicators: Presented to the ED on 08/10, sent by PCP for worsening cellulitis of left lower leg. Per the patient, he was evaluated at [facility] 08/08 for redness & swelling of the lower left leg. Was bitten by a tick on his left side near rib cage on 08/03, tick was removed within 30 minutes. Chills, erythema & swelling left lower leg & foot & erythema traveling up the entire length of the posterior thigh. Admit with Cellulitis of Left Lower Extremity, Chills, Tick bite on rib. 08/10 VS: T 97.7, P 69 (weak), R 16, BP 127/80, ,PO 97 RA, BMI 27.8 08/10 LAB: WBC 11.8, Plt Ct 131, Neutrophils 10.4, Lymph 0.6; Na 133, Glucose 226 08/11 Glucose: 134, 212, 113, 133 7/3 Glucose: 122, 171, 173 7 Glucose: 116, 213, 116, 154 7/5 Glucose: 148, 176, 131 7/6: 113, 138, 106, 201 Treatment 08/10: Infectious Disease Consult, Blood culture, IV Vancomycin 250 mls @ 125 mls/hr x1, IV Na Chl 1,000 mls @ 999 mls/hr q1H, IV morphine Sulfate 4 mg x1, IV Morphine Sulfate 4 mg q4H/prn. 08/11: Blood glucose monitoring, Hypoglycemia Protocol, Insulin sliding scale, Orthopedic consult, po [place] q6H/prn, IV Vancomycin 250 mls @ 125 mls/hr q16H, IV Cefazolin 50 mls @ 100 mls/hr q8H, po Aspirin 81 mg, Heparin 5,000 units sq q12H. Please clarify the following regarding the diagnosis of Diabetes, if known: [ ] Diabetes Type 2 [ ] with Hyperglycemia [ ] without Hyperglycemia [ ] Other, please specify: [ ] Unable to Determine (Template Last Revised: April 2020) without Hyperglycemia MTDD
[2021-08-16 10:32] LABS: African American GFR (CKD) 98.5 (60.0-200.0); Anion Gap 9.4 mmol/L (10.00-18.00); BUN/Creat Ratio 12.12 Ratio (12.00-20.00); Blood Urea Nitrogen 11.1 mg/dL (9.0-27.0); Calcium 8.4 mg/dL (8.7-10.3); Carbon Dioxide 27.5 mmol/L (20.0-27.5); Magnesium 2.4 mg/dL (1.5-2.4); Potassium 4.5 mmol/L (3.5-5.5)
[2021-08-16 11:09] LABS: Glucose,Whole Blood 122 mg/dL (70-110)
[2021-08-16 12:12] VITALS: BMI 27.7
[2021-08-16 16:25] LABS: Glucose,Whole Blood 119 mg/dL (70-110)
[2021-08-16] MEDS ORDERED: DOCUSATE 100 MG CAP PO PRN (19:18)
--- NOTE | 2021-08-16 19:20 | P.PN ---
Subjective This is a pleasant 71 years old male with past medical history of hypertension , hyperlipidemia. Is a patient of Dr. Bocanegra pt states he was playing like a baseball game last friday and next day the back of his left leg calf started hurting him, and started getting more red swollen and tender, he presents with left leg cellulitis mainly involving the distal left leg looks extends to lesser extent in the left foot and more on the medial thigh up to the groin. The leg is warm, erythematous and tender and swollen Patient denies any other complaints. Patient states he is diabetic but he is on diet control only. Denies chest pain or dyspnea. No abdominal pain vomiting or diarrhea. No urinary complaints. No headache or weakness. he smokes less than half the day and he was counseled that he does not want to quit and he declined nicotine patch, no alcohol or illicit drugs. Vitas looks stable. Mild leukocytosis at 11.8. Mild thrombocytopenia on 131. BNP and d, And painfulided enzymes are unremarkable. Glucose is 226. In the emergency room patient was started on IV vancomycin. ID consult 08/12/2021 Left leg cellulitis today significantly improved, his redness and erythema in the left thigh is almost completely resolved and his cellulitis now is confined to the about two thirds of the left leg mainly distal part. Pain is better. With this improvement vancomycin was discontinued and continued with cefazolin He tolerated that well and hemodynamically stable No known 50 mL per hour 08/13/2021 Left leg cellulitis is improving No other new complaint Continue with cefazolin and normal saline 50 mm per hour 08/14/2021 Left leg cellulitis looks still right swollen and warm clindamycin is admitted for infectious disease team recommendation to the cefazolin. We'll keep monitoring closely. Repeat labs in the morning 08/15/2021 Patient left leg cellulitis looks better than yesterday. Culture was sent from ruptured blister on his left leg and the result is pending He remains on cefazolin and clindamycin Continue with gentle hydration normal saline at 50 mL per hour Colace for constipation 08/16/2021 Today his left leg looks improvement compared to yesterday as she i it is less right, less swollen and tender. Also he had bowel movement. Continue with cefazolin and clindamycin. Labs are stable Objective - Vital Signs Vital signs: Vital Signs Temp 97.7 F 08/16/21 08:00 Pulse 57 L 08/16/21 08:00 Resp 18 08/16/21 08:00 BP 135/71 08/16/21 08:00 Pulse Ox 97 08/16/21 08:00 FiO2 Intake & Output 08/15/21 08/16/21 08/16/21 18:59 06:59 18:59 Intake Total 2130 Output Total 100 Balance 2130 -100 Intake: Intake, IV Titration 500 Amount Clindamycin 900 mg In 100 Dextrose 5% in Water 50 ml @ 50 mls/hr IVPB Q8HR [facility] Rx#:[id number] Sodium Chloride 0.9% 1, 300 000 ml @ 50 mls/hr IV . Q20H [facility] Rx#:[id number] ceFAZolin 2 gm In Sodium 100 Chloride 0.9% 50 ml @ 100 mls/hr IVPB Q8HR [facility] Rx# :[id number] Oral 1630 Output: Urine 100 Other: Voiding Method Urinal Urinal # Voids 3 2 - Exam GENERAL: The patient is alert and oriented x3, not in any acute distress. Well developed, well nourished. HEENT: Pupils are round and equally reacting to light. EOMI. No scleral icterus. No conjunctival pallor. Normocephalic, atraumatic. No pharyngeal erythema. No thyromegaly. CARDIOVASCULAR: S1 and S2 present. No murmurs, rubs, or gallops. PULMONARY: Chest is clear to auscultation, no wheezing or crackles. ABDOMEN: Soft, nontender, nondistended, normoactive bowel sounds. No palpable organomegaly. MUSCULOSKELETAL: No joint swelling or deformity. -EXTREMITIES: No cyanosis, clubbing, or pedal edema. Left leg cellulitis, improved NEUROLOGICAL: Gross neurological examination did not reveal any focal deficits. SKIN: No rashes. no petechiae. - Labs CBC & Chem 7: 08/15/21 05:38 08/16/21 06:04 Labs: Abnormal Lab Results - Last 24 Hours (Table) 08/15/21 08/15/21 08/15/21 Range/Units 05:38 05:38 11:37 RBC 4.38 L (4.40-5.60) X 10*6/uL Hgb 12.2 L (13.0-17.0) g/dL Hct 38.2 L (39.6-50.0) % MCHC 31.9 L (32.0-37.0) g/dL Immature Gran # 0.15 H (0.00-0.04) X 10*3/uL Eosinophils # 0.39 H (0.04-0.35) X 10*3/uL Carbon Dioxide 29.3 H (20.0-27.5) mmol/L Anion Gap 8.70 L (10.00-18.00) mmol/L Glucose 114 H (70-110) mg/dL POC Glucose (mg/dL) 138 H (70-110) mg/dL Calcium 8.4 L (8.7-10.3) mg/dL Conjugated Bilirubin <0.20 L (0.20-0.40) mg/dL Total Protein 5.1 L (6.2-8.2) g/dL Albumin 2.8 L (3.8-4.9) g/dL Albumin/Globulin Ratio 1.21 L (1.60-3.17) g/dL 08/15/21 Range/Units 21:01 RBC (4.40-5.60) X 10*6/uL Hgb (13.0-17.0) g/dL Hct (39.6-50.0) % MCHC (32.0-37.0) g/dL Immature Gran # (0.00-0.04) X 10*3/uL Eosinophils # (0.04-0.35) X 10*3/uL Carbon Dioxide (20.0-27.5) mmol/L Anion Gap (10.00-18.00) mmol/L Glucose (70-110) mg/dL POC Glucose (mg/dL) 201 H (70-110) mg/dL Calcium (8.7-10.3) mg/dL Conjugated Bilirubin (0.20-0.40) mg/dL Total Protein (6.2-8.2) g/dL Albumin (3.8-4.9) g/dL Albumin/Globulin Ratio (1.60-3.17) g/dL Microbiology - Last 24 Hours (Table) 08/14/21 18:30 Gram Stain - Preliminary Leg - Left Wound Culture - Preliminary 08/10/21 22:00 Blood Culture - Preliminary Blood No Growth after 120 hours 08/10/21 20:25 Blood Culture - Preliminary Blood No Growth after 120 hours Assessment and Plan Assessment: Left lower extremity cellulitis Nicotine dependence Hypertension Hyperlipidemia Plan: This is a pleasant 71 years old female who presents with acute cellulitis Continue with antibiotics, currently on cefazolin and clindamycin per ID team Infectious disease team consult Orthopedic consult Follow-up culture results Labs and medication were reviewed.. Continue same treatment. Continue with symptomatic treatment. Resume home medication. Monitor lytes and vitals. DVT and GI prophylaxis. Further recommendations as per clinical course of the patient DVT prophylaxis: Subcutaneous heparin GI Prophylaxis: Pepcid PT/OT: Pending Prognosis is guarded
[2021-08-16 20:13] LABS: Glucose,Whole Blood 139 mg/dL (70-110)
[2021-08-16] MEDS: ASPIRIN 81 MG PO SCH (20:33)
[2021-08-16] MEDS: ATORVASTATIN 20 MG TAB PO SCH (20:33)
[2021-08-17] MEDS: CLINDAMYCIN 900 MG in DEXTROSE 5% IN WATER 50 ML IVPB SCH ×6 (00:17→17:11)
[2021-08-17] MEDS: MORPHINE SULFATE 4 MG/ML SYRINGE IVP PRN ×5 (01:35→22:31)
[2021-08-17 07:14] LABS: Glucose,Whole Blood 110 mg/dL (70-110)
[2021-08-17] MEDS: INSULIN ASPART (NovoLOG) 100 UNIT/ML VIAL SQ SCH ×4 (07:27→22:16)
[2021-08-17] MEDS: HYDROcodone/APAP 7.5-325MG 1 EACH TAB PO PRN ×3 (07:28→23:53)
[2021-08-17] MEDS: METOPROLOL TARTRATE 25 MG TAB PO SCH ×2 (07:28→22:20)
[2021-08-17] MEDS: HEPARIN SODIUM,PORCINE/PF 5,000 UNIT/0.5 ML SYRINGE SQ SCH ×2 (07:28→22:19)
[2021-08-17] MEDS: FAMOTIDINE 20 MG TAB PO SCH ×2 (07:28→22:20)
[2021-08-17] MEDS: NICOTINE 14MG/24HR PATCH TRANSDERM SCH (07:29)
--- NOTE | 2021-08-17 07:46 | P.PN ---
Subjective Progress Note Date: 08/16/21 Principal diagnosis: Left lower extremity cellulitis Patient is a 71 year old male who presented to hospital with acute left lower extremity pain swelling and redness and has been diagnosed with left lower extremity cellulitis. On today's evaluation that is 08/16/2021, the patient continues to be afebrile, the patient is breathing comfortably on room air, the patient denies chest pain shortness breath or cough no abdominal pain , patient pain to the left leg has decreased in intensity , the patient left leg redness also decreased intensity no new blister Objective - Vital Signs Vital signs: Vital Signs Temp 97.7 F 08/16/21 08:00 Pulse 57 L 08/16/21 08:00 Resp 18 08/16/21 08:00 BP 135/71 08/16/21 08:00 Pulse Ox 97 08/16/21 08:00 FiO2 Intake & Output 08/15/21 08/16/21 08/16/21 18:59 06:59 18:59 Intake Total 2130 Output Total 100 Balance 2130 -100 Intake: Intake, IV Titration 500 Amount Clindamycin 900 mg In 100 Dextrose 5% in Water 50 ml @ 50 mls/hr IVPB Q8HR [facility] Rx#:[id number] Sodium Chloride 0.9% 1, 300 000 ml @ 50 mls/hr IV . Q20H [facility] Rx#:[id number] ceFAZolin 2 gm In Sodium 100 Chloride 0.9% 50 ml @ 100 mls/hr IVPB Q8HR [facility] Rx# :[id number] Oral 1630 Output: Urine 100 Other: Voiding Method Urinal Urinal # Voids 3 2 - Exam GENERAL DESCRIPTION: An elderly male lying in bed in no distress RESPIRATORY SYSTEM: Unlabored breathing , decreased breath sounds at bases HEART: S1 S2 regular rate and rhythm , ABDOMEN: Soft , no tenderness EXTREMITIES: Left leg swelling and redness with a blister to the posterior leg with some purulent drainage - Labs CBC & Chem 7: 08/15/21 05:38 08/16/21 06:04 Labs: Abnormal Lab Results - Last 24 Hours (Table) 08/15/21 08/15/21 08/15/21 Range/Units 05:38 05:38 11:37 RBC 4.38 L (4.40-5.60) X 10*6/uL Hgb 12.2 L (13.0-17.0) g/dL Hct 38.2 L (39.6-50.0) % MCHC 31.9 L (32.0-37.0) g/dL Immature Gran # 0.15 H (0.00-0.04) X 10*3/uL Eosinophils # 0.39 H (0.04-0.35) X 10*3/uL Carbon Dioxide 29.3 H (20.0-27.5) mmol/L Anion Gap 8.70 L (10.00-18.00) mmol/L Glucose 114 H (70-110) mg/dL POC Glucose (mg/dL) 138 H (70-110) mg/dL Calcium 8.4 L (8.7-10.3) mg/dL Conjugated Bilirubin <0.20 L (0.20-0.40) mg/dL Total Protein 5.1 L (6.2-8.2) g/dL Albumin 2.8 L (3.8-4.9) g/dL Albumin/Globulin Ratio 1.21 L (1.60-3.17) g/dL 08/15/21 Range/Units 21:01 RBC (4.40-5.60) X 10*6/uL Hgb (13.0-17.0) g/dL Hct (39.6-50.0) % MCHC (32.0-37.0) g/dL Immature Gran # (0.00-0.04) X 10*3/uL Eosinophils # (0.04-0.35) X 10*3/uL Carbon Dioxide (20.0-27.5) mmol/L Anion Gap (10.00-18.00) mmol/L Glucose (70-110) mg/dL POC Glucose (mg/dL) 201 H (70-110) mg/dL Calcium (8.7-10.3) mg/dL Conjugated Bilirubin (0.20-0.40) mg/dL Total Protein (6.2-8.2) g/dL Albumin (3.8-4.9) g/dL Albumin/Globulin Ratio (1.60-3.17) g/dL Microbiology - Last 24 Hours (Table) 08/14/21 18:30 Gram Stain - Preliminary Leg - Left Wound Culture - Preliminary 08/10/21 22:00 Blood Culture - Preliminary Blood No Growth after 120 hours 08/10/21 20:25 Blood Culture - Preliminary Blood No Growth after 120 hours Assessment and Plan (1) Cellulitis of left lower extremity Current Visit: Yes Status: Acute Code(s): L03.116 - CELLULITIS OF LEFT LOWER LIMB SNOMED Code(s): 510229340 Plan: 1patient presented to hospital acute left lower extremity cellulitis in this patient who did have diffuse swelling and redness more likely streptococcal disease clinically not behaving as MRSA or gram-negative infection. Local culture obtained which are so far negative 2 patient to continue with cefazolin and clindamycin for another 24 hour before transitioning to oral antibiotics, continue with the ANITA wrap to keep the swelling down Time with Patient: Less than 30
[2021-08-17] MEDS: SODIUM CHLORIDE 0.9% 1,000 ML IV SCH (08:31)
[2021-08-17 09:47] LABS: Glucose,Whole Blood 147 mg/dL (70-110)
[2021-08-17 10:40] LABS: Basophils # (A) 0.09 X 10*3/uL (0.00-0.10); Eosinophils # (A) 0.51 X 10*3/uL (0.04-0.35); Eosinophils % (A) 5.6 %; HCT 41.4 % (39.6-50.0); HGB 13.5 g/dL (13.0-17.0); Immature Grans, Automated 2.5 %; Lymphocytes # (A) 1.66 X 10*3/uL (0.90-5.00); Lymphocytes % (A) 18.1 %; MCHC 32.6 g/dL (32.0-37.0); MCV 85.7 fL (80.0-97.0); Mean Platelet Volume 11.1 fL (9.5-12.2); Monocytes % (A) 9.8 %; NRBC Per 100 WBC 0 /100 WBCS (0.0-0.0); Neutrophils # (A) 5.79 X 10*3/uL (1.80-7.70); Platelet Count 309 X 10*3/uL (140-440); RBC 4.83 X 10*6/uL (4.40-5.60); RDW 12.9 % (11.5-14.5); WBC 9.18 X 10*3/uL (4.50-10.00)
[2021-08-17 11:10] LABS: African American GFR (CKD) 85.5 (60.0-200.0); Anion Gap 11.8 mmol/L (10.00-18.00); BUN/Creat Ratio 14.27 Ratio (12.00-20.00); Blood Urea Nitrogen 14.7 mg/dL (9.0-27.0); Calcium 8.8 mg/dL (8.7-10.3); Carbon Dioxide 24.2 mmol/L (20.0-27.5); Non-African American GFR(CKD) 73.8 (60.0-200.0); Potassium 4.6 mmol/L (3.5-5.5)
[2021-08-17 11:28] LABS: Glucose,Whole Blood 149 mg/dL (70-110)
[2021-08-17 16:43] LABS: Glucose,Whole Blood 117 mg/dL (70-110)
--- NOTE | 2021-08-17 19:35 | P.PN ---
Subjective Progress Note Date: 08/17/21 71 years old male with past medical history of hypertension , hyperlipidemia. Is a patient of Dr. Bocanegra pt states he was playing like a baseball game last friday and next day the back of his left leg calf started hurting him, and started getting more red swollen and tender, he presents with left leg cellulitis mainly involving the distal left leg looks extends to lesser extent in the left foot and more on the medial thigh up to the groin. The leg is warm, erythematous and tender and swollen Patient denies any other complaints. Patient states he is diabetic but he is on diet control only. Denies chest pain or dyspnea. No abdominal pain vomiting or diarrhea. No urinary complaints. No headache or weakness. he smokes less than half the day and he was counseled that he does not want to quit and he declined nicotine patch, no alcohol or illicit drugs. ---- Mild leukocytosis at 11.8. Mild thrombocytopenia on 131. BNP and d, And painfulided enzymes are unremarkable. Glucose is 226. In the emergency room patient was started on IV vancomycin. Objective - Vital Signs Vital signs: Vital Signs Temp 98.1 F 08/17/21 14:00 Pulse 54 L 08/17/21 14:00 Resp 16 08/17/21 14:00 BP 138/65 08/17/21 14:00 Pulse Ox 95 08/17/21 14:00 FiO2 Intake & Output 08/16/21 08/17/21 08/17/21 18:59 06:59 18:59 Intake Total 500 Output Total 550 Balance 500 -550 Weight 78.018 kg Intake: Intake, IV Titration 500 Amount Clindamycin 900 mg In 50 Dextrose 5% in Water 50 ml @ 50 mls/hr IVPB Q8HR [facility] Rx#:[id number] Sodium Chloride 0.9% 1, 400 000 ml @ 50 mls/hr IV . Q20H [facility] Rx#:[id number] ceFAZolin 2 gm In Sodium 50 Chloride 0.9% 50 ml @ 100 mls/hr IVPB Q8HR [facility] Rx# :[id number] Output: Urine 550 Other: Voiding Method Urinal - Exam GENERAL: The patient is alert and oriented x3, not in any acute distress. Well developed, well nourished. HEENT: Pupils are round and equally reacting to light. EOMI. No scleral icterus. No conjunctival pallor. Normocephalic, atraumatic. No pharyngeal erythema. No thyromegaly. CARDIOVASCULAR: S1 and S2 present. No murmurs, rubs, or gallops. PULMONARY: Chest is clear to auscultation, no wheezing or crackles. ABDOMEN: Soft, nontender, nondistended, normoactive bowel sounds. No palpable organomegaly. MUSCULOSKELETAL: No joint swelling or deformity. -EXTREMITIES: No cyanosis, clubbing, or pedal edema. Left leg cellulitis, improved NEUROLOGICAL: Gross neurological examination did not reveal any focal deficits. SKIN: No rashes. no petechiae. - Labs CBC & Chem 7: 08/17/21 06:23 08/17/21 06:23 Labs: Abnormal Lab Results - Last 24 Hours (Table) 08/16/21 08/17/21 08/17/21 Range/Units 20:12 06:23 06:23 Immature Gran # 0.23 H (0.00-0.04) X 10*3/uL Eosinophils # 0.51 H (0.04-0.35) X 10*3/uL Glucose 119 H (70-110) mg/dL POC Glucose (mg/dL) 139 H (70-110) mg/dL 08/17/21 08/17/21 Range/Units 09:46 11:22 Immature Gran # (0.00-0.04) X 10*3/uL Eosinophils # (0.04-0.35) X 10*3/uL Glucose (70-110) mg/dL POC Glucose (mg/dL) 147 H 149 H (70-110) mg/dL Microbiology - Last 24 Hours (Table) 08/14/21 18:30 Gram Stain - Final Leg - Left Wound Culture - Final 08/10/21 22:00 Blood Culture - Final Blood No Growth after 144 hours 08/10/21 20:25 Blood Culture - Final Blood No Growth after 144 hours Assessment and Plan Assessment: Left lower extremity cellulitis Nicotine dependence Hypertension Hyperlipidemia ---- Continue with antibiotics, currently on cefazolin and clindamycin per ID team Infectious disease team consult Orthopedic consult Follow-up culture results Labs and medication were reviewed.. Continue same treatment. Continue with symptomatic treatment. Resume home medication. Monitor lytes and vitals. DVT and GI prophylaxis. Further recommendations as per clinical course of the patient DVT prophylaxis: Subcutaneous heparin GI Prophylaxis: Pepcid PT/OT: Pending Prognosis is guarded
[2021-08-17 20:56] LABS: Glucose,Whole Blood 121 mg/dL (70-110)
[2021-08-17] MEDS: ATORVASTATIN 20 MG TAB PO SCH (22:19)
[2021-08-17] MEDS: ASPIRIN 81 MG PO SCH (22:20)
[2021-08-18] MEDS: CLINDAMYCIN 900 MG in DEXTROSE 5% IN WATER 50 ML IVPB SCH ×6 (00:46→17:40)
[2021-08-18 07:13] LABS: Glucose,Whole Blood 106 mg/dL (70-110)
[2021-08-18] MEDS: FAMOTIDINE 20 MG TAB PO SCH (08:36)
[2021-08-18] MEDS: HEPARIN SODIUM,PORCINE/PF 5,000 UNIT/0.5 ML SYRINGE SQ SCH (08:36)
[2021-08-18] MEDS: MORPHINE SULFATE 4 MG/ML SYRINGE IVP PRN ×2 (08:42→13:13)
[2021-08-18] MEDS: HYDROcodone/APAP 7.5-325MG 1 EACH TAB PO PRN (09:59)
[2021-08-18] MEDS: INSULIN ASPART (NovoLOG) 100 UNIT/ML VIAL SQ SCH ×3 (10:02→17:40)
[2021-08-18] MEDS: NICOTINE 14MG/24HR PATCH TRANSDERM SCH (10:10)
[2021-08-18] MEDS: SODIUM CHLORIDE 0.9% 1,000 ML IV SCH (10:11)
--- NOTE | 2021-08-18 11:11 | P.PN ---
Subjective Progress Note Date: 08/17/21 Principal diagnosis: Left lower extremity cellulitis Patient is a 71 year old male who presented to hospital with acute left lower extremity pain swelling and redness and has been diagnosed with left lower extremity cellulitis. On today's evaluation that is 08/17/2021, the patient denies any fever or chills, the patient is breathing comfortably on room air, the patient denies chest pain shortness breath or cough no abdominal pain , patient is still complaining of significant pain to the left leg however the patient left leg redness also decreased intensity and there is no new blister Objective - Vital Signs Vital signs: Vital Signs Temp 97.7 F 08/17/21 09:39 Pulse 61 08/17/21 09:39 Resp 14 08/17/21 09:39 BP 115/70 08/17/21 09:39 Pulse Ox 95 08/17/21 09:39 FiO2 Intake & Output 08/16/21 08/17/21 08/17/21 18:59 06:59 18:59 Intake Total 500 Output Total 550 Balance 500 -550 Weight 78.018 kg Intake: Intake, IV Titration 500 Amount Clindamycin 900 mg In 50 Dextrose 5% in Water 50 ml @ 50 mls/hr IVPB Q8HR [facility] Rx#:[id number] Sodium Chloride 0.9% 1, 400 000 ml @ 50 mls/hr IV . Q20H [facility] Rx#:[id number] ceFAZolin 2 gm In Sodium 50 Chloride 0.9% 50 ml @ 100 mls/hr IVPB Q8HR [facility] Rx# :[id number] Output: Urine 550 Other: Voiding Method Urinal - Exam GENERAL DESCRIPTION: An elderly male lying in bed in no distress RESPIRATORY SYSTEM: Unlabored breathing , decreased breath sounds at bases HEART: S1 S2 regular rate and rhythm , ABDOMEN: Soft , no tenderness EXTREMITIES: Left leg swelling and redness has decreased in intensity - Labs CBC & Chem 7: 08/17/21 06:23 08/17/21 06:23 Labs: Abnormal Lab Results - Last 24 Hours (Table) 08/16/21 08/16/21 08/17/21 Range/Units 16:25 20:12 06:23 Immature Gran # 0.23 H (0.00-0.04) X 10*3/uL Eosinophils # 0.51 H (0.04-0.35) X 10*3/uL Glucose (70-110) mg/dL POC Glucose (mg/dL) 119 H 139 H (70-110) mg/dL 08/17/21 08/17/21 08/17/21 Range/Units 06:23 09:46 11:22 Immature Gran # (0.00-0.04) X 10*3/uL Eosinophils # (0.04-0.35) X 10*3/uL Glucose 119 H (70-110) mg/dL POC Glucose (mg/dL) 147 H 149 H (70-110) mg/dL Microbiology - Last 24 Hours (Table) 08/14/21 18:30 Gram Stain - Final Leg - Left Wound Culture - Final 08/10/21 22:00 Blood Culture - Final Blood No Growth after 144 hours 08/10/21 20:25 Blood Culture - Final Blood No Growth after 144 hours Assessment and Plan (1) Cellulitis of left lower extremity Current Visit: Yes Status: Acute Code(s): L03.116 - CELLULITIS OF LEFT LOWER LIMB SNOMED Code(s): 637961553 Plan: 1patient presented to hospital acute left lower extremity cellulitis in this patient who did have diffuse swelling and redness more likely streptococcal disease clinically not behaving as MRSA or gram-negative infection. Local culture obtained which are so far negative 2 patient did have clinical improvement as for his cellulitis or complaining of pain and is getting morphine R and has been advised to control the pain with the oral medication for possible discharge in the morning, patient to continue with cefazolin and clindamycin for another 24 hour before transitioning to oral antibiotics, continue with the ANITA wrap to keep the swelling down Time with Patient: Less than 30
[2021-08-18 11:41] LABS: Glucose,Whole Blood 148 mg/dL (70-110)
[2021-08-18 14:36] VITALS: BP 122/87; PULSE 58; RESP 18; TEMP 97.6
[2021-08-18] MEDS: METOPROLOL TARTRATE 25 MG TAB PO SCH (15:35)
--- NOTE | 2021-08-18 15:54 | P.DS ---
Providers Date of admission: 08/10/21 22:10 Expected date of discharge: 08/18/21 Attending physician: Kat Che Consults: 08/10/21 22:31 Consult Physician Routine Consulting Provider: Herminia York Consult Reason/Comments: LLE cellulitis, recent tick bite Do you want consulting provider notified?: Yes 08/11/21 10:34 Consult Physician Urgent Consulting Provider: Glen Smith Consult Reason/Comments: sever left leg swelling secondary to cellulitis Do you want consulting provider notified?: Yes Primary care physician: Reshma Bocanegra [facility] Course: 71 years old male with past medical history of hypertension , hyperlipidemia. Is a patient of Dr. Bocanegra pt states he was playing like a baseball game last friday and next day the back of his left leg calf started hurting him, and started getting more red swollen and tender, he presents with left leg cellulitis mainly involving the distal left leg looks extends to lesser extent in the left foot and more on the medial thigh up to the groin. The leg is warm, erythematous and tender and swollen Patient denies any other complaints. Patient states he is diabetic but he is on diet control only. Denies chest pain or dyspnea. No abdominal pain vomiting or diarrhea. No urinary complaints. No headache or weakness. he smokes less than half the day and he was counseled that he does not want to quit and he declined nicotine patch, no alcohol or illicit drugs. Vitas looks stable. Mild leukocytosis at 11.8. Mild thrombocytopenia on 131. BNP and d, And painfulided enzymes are unremarkable. Glucose is 226. In the emergency room patient was started on IV vancomycin. ID consult 08/12/2021 Left leg cellulitis today significantly improved, his redness and erythema in the left thigh is almost completely resolved and his cellulitis now is confined to the about two thirds of the left leg mainly distal part. Pain is better. With this improvement vancomycin was discontinued and continued with cefazolin He tolerated that well and hemodynamically stable No known 50 mL per hour 08/13/2021 Left leg cellulitis is improving No other new complaint Continue with cefazolin and normal saline 50 mm per hour 08/14/2021 Left leg cellulitis looks still right swollen and warm clindamycin is admitted for infectious disease team recommendation to the cefazolin. We'll keep monitoring closely. Repeat labs in the morning 08/15/2021 Patient left leg cellulitis looks better than yesterday. Culture was sent from ruptured blister on his left leg and the result is pending He remains on cefazolin and clindamycin Continue with gentle hydration normal saline at 50 mL per hour Colace for constipation 08/16/2021 Today his left leg looks improvement compared to yesterday as she i it is less right, less swollen and tender. Also he had bowel movement. Continue with cefazolin and clindamycin. 08/17/2021, the patient denies any fever or chills, the patient is breathing comfortably on room air, the patient denies chest pain shortness breath or cough no abdominal pain , patient is still complaining of significant pain to the left leg however the patient left leg redness also decreased intensity and there is no new blister patient did have clinical improvement as for his cellulitis or complaining of pain and is getting morphine R and has been advised to control the pain with the oral medication for possible discharge in the morning, patient to continue with cefazolin and clindamycin for another 24 hour before transitioning to oral antibiotics, continue with the ANITA wrap to keep the swelling down 08/18/2021 Patient stable for dc Patient Condition at Discharge: Fair Plan - Discharge Summary Discharge Rx Participant: No New Discharge Prescriptions: New Clindamycin [Cleocin] 150 mg PO Q6H 7 Days #28 cap Cephalexin [Keflex] 500 mg PO Q8HR 7 Days #21 cap Continue Metoprolol Tartrate [Lopressor] 25 mg PO BID Simvastatin [Zocor] 40 mg PO HS Aspirin EC [Ecotrin Low Dose] 81 mg PO DAILY Discontinued Doxycycline Hyclate 100 mg PO BID Discharge Medication List Metoprolol Tartrate [Lopressor] 25 mg PO BID 07/01/14 [History] Simvastatin [Zocor] 40 mg PO HS 07/01/14 [History] Aspirin EC [Ecotrin Low Dose] 81 mg PO DAILY 08/10/21 [History] Cephalexin [Keflex] 500 mg PO Q8HR 7 Days #21 cap 08/18/21 [Rx] Clindamycin [Cleocin] 150 mg PO Q6H 7 Days #28 cap 08/18/21 [Rx] Follow up Appointment(s)/Referral(s): Reshma Bocanegra DO [Primary Care Provider] - 1-2 days Discharge Disposition: HOME SELF-CARE
--- NOTE | 2021-08-18 22:57 | P.PN ---
Subjective Progress Note Date: 08/18/21 Principal diagnosis: Left lower extremity cellulitis Patient is a 71 year old male who presented to hospital with acute left lower extremity pain swelling and redness and has been diagnosed with left lower extremity cellulitis. On today's evaluation that is 08/18/2021, the patient remains to be afebrile, the patient is breathing comfortably on room air, the patient denies chest pain shortness breath or cough no abdominal pain , patient pain to the left leg has decreased intensity and there is no drainage Objective - Vital Signs Vital signs: Vital Signs Temp 97.5 F L 08/18/21 08:00 Pulse 47 L 08/18/21 08:00 Resp 20 08/18/21 02:00 BP 148/87 08/18/21 08:00 Pulse Ox 96 08/18/21 08:00 FiO2 Intake & Output 08/17/21 08/18/21 08/18/21 18:59 06:59 18:59 Intake Total 150 Output Total 250 Balance -100 Intake: Intake, IV Titration 150 Amount Clindamycin 900 mg In 50 Dextrose 5% in Water 50 ml @ 50 mls/hr IVPB Q8HR [facility] Rx#:[id number] ceFAZolin 2 gm In Sodium 100 Chloride 0.9% 50 ml @ 100 mls/hr IVPB Q8HR [facility] Rx# :[id number] Output: Urine 250 Other: Voiding Method Toilet Urinal # Voids 3 - Exam GENERAL DESCRIPTION: An elderly male lying in bed in no distress RESPIRATORY SYSTEM: Unlabored breathing , decreased breath sounds at bases HEART: S1 S2 regular rate and rhythm , ABDOMEN: Soft , no tenderness EXTREMITIES: Left leg swelling and redness has decreased in intensity - Labs CBC & Chem 7: 08/17/21 06:23 08/17/21 06:23 Labs: Abnormal Lab Results - Last 24 Hours (Table) 08/17/21 08/17/21 08/17/21 Range/Units 06:23 11:22 16:41 Glucose 119 H (70-110) mg/dL POC Glucose (mg/dL) 149 H 117 H (70-110) mg/dL 08/17/21 Range/Units 20:53 Glucose (70-110) mg/dL POC Glucose (mg/dL) 121 H (70-110) mg/dL Microbiology - Last 24 Hours (Table) 08/14/21 18:30 Gram Stain - Final Leg - Left Wound Culture - Final Assessment and Plan (1) Cellulitis of left lower extremity Status: Acute Code(s): L03.116 - CELLULITIS OF LEFT LOWER LIMB SNOMED Code(s): 927892753 Plan: 1patient presented to hospital acute left lower extremity cellulitis in this patient who did have diffuse swelling and redness more likely streptococcal di sease clinically not behaving as MRSA or gram-negative infection. Local culture obtained which are so far negative 2 patient did have clinical improvement as for his cellulitis and will finish therapy with oral Keflex 500 mg by mouth every 6 hours for 7-10 days, local care with Aquacel silver dressing and Nitish wrap and close outpatient follow-up Time with Patient: Less than 30
== END 2021-08-18 18:09 | disposition home or self-care (01) | DRG 603 ==
LOC: EC 14:51 → 4SSUR 22:10
PROVIDERS: ADMIT Internal Medicine; ATTEND Internal Medicine
DX: L03.116 Cellulitis of left lower limb (principal); D69.6 Thrombocytopenia, unspecified; E11.9 Type 2 diabetes mellitus without complications; I10 Essential (primary) hypertension; F17.210 Nicotine dependence, cigarettes, uncomplicated; E78.5 Hyperlipidemia, unspecified; B95.5 Unspecified streptococcus as the cause of diseases classified elsewhere; W57.XXXA Bitten or stung by nonvenomous insect and other nonvenomous arthropods, initial encounter; M79.89 Other specified soft tissue disorders; S80.812A Abrasion, left lower leg, initial encounter; K59.00 Constipation, unspecified; Z79.82 Long term (current) use of aspirin; Z79.899 Other long term (current) drug therapy; I25.2 Old myocardial infarction; Z95.3 Presence of xenogenic heart valve; Z90.89 Acquired absence of other organs; Z98.890 Other specified postprocedural states; Z88.8 Allergy status to other drugs, medicaments and biological substances
CPT/HCPCS: 36415; 80048; 80053; 80076; 83036; 83605; 83735; 85025; 87040; 87070; 87205; 96361; 96365; 96374; 99284

== ENCOUNTER → 2022-07-23 | Outpatient (CLI) | payer MEDICARE, OTHER ==
--- NOTE | 2022-07-23 14:14 | US ---
EXAMINATION TYPE: US venous doppler duplex LE BI DATE OF EXAM: 07/23/2022 1:59 PM COMPARISON: Left lower extremity venous ultrasound 08/11/2021, bilateral lower extremity venous ultraso und 08/09/2021. CLINICAL INDICATION: Male, 72 years old with history of I73.9 PERIPHERAL VASCULAR DISEASE; Patient on thinners. SIDE PERFORMED: Bilateral TECHNIQUE: The lower extremity deep venous system is examined utilizing real time linear array sonog crystal with graded compression, doppler sonography and color-flow sonography. VESSELS IMAGED: Common Femoral Vein Deep Femoral Vein Greater Saphenous Vein * Femoral Vein Popliteal Vein Small Saphenous Vein * Proximal Calf Veins (* superficial vessels) Grayscale, color doppler, spectral doppler imaging performed of the deep veins of the lower extremiti es. There is normal flow, compressibility, vascular waveforms. Right Leg: Negative for DVT Left Leg: Negative for DVT IMPRESSION: No ultrasound evidence for deep venous thrombosis of the bilateral lower extremities.
== END | disposition home or self-care (01) ==
LOC: RADUSWWP 13:30
PROVIDERS: ATTEND Family Medicine
DX: I73.9 Peripheral vascular disease, unspecified (principal)
CPT/HCPCS: 93970